=== PATIENT | female | born 1950 | race Caucasian/White ===

== ENCOUNTER 2017-07-26 05:40 | Observation (INO) ==
[2017-07-26] MEDS ORDERED: Ipratropium/Albuterol Neb 3 ML IH ONE (06:04)
[2017-07-26 06:10] LABS: Basophils % 0.1 %; Eosinophils # 0.1 K/mcL (0.0-0.6); Eosinophils % 0.9 %; Immature Granulocytes % 0.5 % (0-4); Lymphocytes # 2.9 K/mcL (0.6-4.6); Mean Corpuscular HGB Conc 31.4 g/dL (31.6-35.5); Mean Corpuscular Hemoglobin 26.1 pg (28.0-33.3); Mean Corpuscular Volume 83.1 fL (83.0-100.0); Mean Platelet Volume 10.6 fL (9.4-12.4); Monocytes # 0.6 K/mcL (0.0-1.3); Neutrophils # 6.3 K/mcL (1.6-8.9); Platelet Count 286 K/mcL (140-400); Red Blood Count 4.21 M/mcL (3.82-4.97); Red Cell Distribution Width 15.1 % (11.5-14.5); Segmented Neutrophils % 63.5 %
[2017-07-26 06:22] LABS: BUN/Creatinine Ratio 30 (6-26); Blood Urea Nitrogen 26 mg/dL (7-20); Calcium 8.7 mg/dL (8.6-10.8); Carbon Dioxide 22 mEq/L (19-29); Chloride 108 mEq/L (98-109); Glucose 137 mg/dL (70-99); Magnesium 0.9 mg/dL (1.6-2.6); Osmolality,Calculated 299 (280-300); Potassium 4.4 mEq/L (3.5-4.5); Sodium 141 mEq/L (136-145); eGFR For African Americans > 60 (> 60); eGFR For Non-African Americans > 60 (> 60)
[2017-07-26 06:29] LABS: Bilirubin,Urine Negative (Negative); Blood,Urine Negative (Negative); Clarity,Urine Clear (Clear); Color,Urine Yellow (Yellow); Glucose,Urine (UA) Normal (Normal); Ketones,Urine Negative (Negative); Leukocyte Esterase,Urine Negative (Negative); Nitrite,Urine Negative (Negative); Protein,Urine Negative (Neg-Trace); Specific Gravity,Urine 1.026 (1.010-1.025); Urobilinogen,Urine Normal (Normal)
--- NOTE | 2017-07-26 06:30 | Emergency Department Note ---
START Narrative - START START: Patient is a 67-year-old female nonsmoker who presents with difficulty breathing. Mentions a recent illness for which she has been seeing her primary care Dr. Nelson, who has put her on prednisone and Levaquin. She states that her difficulty breathing has been worsening for weeks, she has been unable to get an appointment with her tool machine set up operator. She mentions a history of A. fib, and states her compliance with her heart medications. She states she has been putting off coming to the emergency department, however her symptoms persisted which prompted her visit tonjose. She states she feels that her breathing worsened when she was outside. She has no relief with her breathing treatments at home. She denies any chest pain. She is slightly tachycardic, her initial EKG shows A. fib. She does have a history of A. fib. Her oxygen saturation is within normal limits. On examination, she does not appear in distress. She has bilateral wheezing. I have ordered initial lab work, chest x-ray, and a DuoNeb breathing treatment. This is a start note, care of this patient will be continued by day shift provider, Raissa Torres PA-C. Please see her documentation for details.
[2017-07-26 06:45] LABS: Thyroid Stimulating Hormone 1.052 mcIU/mL (0.350-4.840)
[2017-07-26] MEDS ORDERED: 0.9 % Sodium Chloride 1,000 ML IVC ONE (06:53)
--- NOTE | 2017-07-26 07:12 | Emergency Department Note ---
Disposition Clinical Impression: Hypomagnesemia, Atrial fibrillation with rapid ventricular response, Orthostatic hypotension, Near syncope Asthma with exacerbation Qualifiers: Asthma severity: unspecified severity Asthma persistence: persistent Qualified Code(s): J45.901 - Unspecified asthma with (acute) exacerbation Chest pain Qualifiers: Chest pain type: precordial pain Qualified Code(s): R07.2 - Precordial pain Disposition: Admitted As Inpatient Condition: Fair Referrals: Juaquin Nelson MD [Primary Care Provider] - SOB HPI - General Chief Complaint: ED Shortness of Breath/Dyspnea Stated Complaint: dizzy, ANAMARIA, heart racing Time Seen by Provider: 07/26/17 05:54 Source: patient, family Mode of arrival: private vehicle Limitations: no limitations Nursing Notes Reviewed: Yes Vital Signs Reviewed: Yes - History of Present Illness Patient presents from home with her for evaluation of dizziness, near syncope, shortness of breath and generalized malaise. She states that she has been feeling poorly for about a week. She saw her primary care provider, Juaquin Nelson, and was started on Levaquin and prednisone. She has taken this as prescribed and felt a little better on Sunday, but has gradually worsened since then. She has had several episodes of dizziness which she describes as "severely lightheaded and wobbly." She states that sometimes it feels like the room is spinning, but mostly she just feels like she is going to pass out. She has had episodes like this several times a month since having a triple bypass in June 2016. She has been through several medication changes and has seen her tape transferrer, Dr. Pitts. She continues to have these episodes. She states that sometimes they are related to an illness in that they are more frequent when she is feeling sick; but other times the episodes occur randomly. She denies chest pain, however, states that she has "heaviness in the lungs." This is how she describes the feeling she had when she came to the ER last June and ended up with a triple bypass. She has tried to get in with her tape transferrer, however, the soonest available appointment is the . She called the tape transferrer's office and was told to come to the ER. Pt Subjective Complaint: shortness of breath Onset (ago): day(s) Context: recent illness Severity: moderate Consistency/Duration: constant Improves with: rest Worsens with: exertion Known history of: asthma, diabetes, other (CAD) Associated symptoms: Reports: chest pain (Patient states, "heaviness in the lungs." She holds her chest with an open hand and states that it feels like there is pressure.), cough ("No worse than usual."), sense of impending doom. Denies: fever, wheezing, sputum production, orthopnea, lower extremity pain, polyuria, polydipsia, parasthesias, palpitations, hemoptysis, diaphoresis, nausea/vomiting, syncope (Patient describes several near syncopal episodes), abdominal pain, rash Treatment prior to arrival: bronchodilator, other (Levaquin and prednisone prescribed by her PCP last week) Cough present: Yes Cough Description: Voluntary, Involuntary, Non-Productive, Loose Cough Frequency: Intermittent Sputum production: No - Related Data Home oxygen amount: none Home Medications Medication Instructions Recorded Confirmed Albuterol Neb [Proventil Neb] 3 ml IH TID 06/26/16 05/15/17 Albuterol Sulfate [Ventolin Hfa] 2 puff IH Q4H PRN 06/26/16 05/15/17 Gabapentin [Neurontin] 1,200 mg PO TID 06/26/16 05/15/17 GlipiZIDE [Glipizide Xl] 10 mg PO BID 06/26/16 05/15/17 Latanoprost [Xalatan] 1 drop OP QPM 06/26/16 05/15/17 Linagliptin [Tradjenta] 5 mg PO DAILY 06/26/16 05/15/17 Lisinopril [Zestril] 10 mg PO DAILY 06/26/16 05/15/17 Loratadine [Claritin] 10 mg PO DAILY 06/26/16 05/15/17 Metformin HCl [Glucophage] 1,000 mg PO TID 06/26/16 05/15/17 Omeprazole [PriLOSEC] 20 mg PO BID 06/26/16 05/15/17 Oxycodone HCl/Acetaminophen 1 tab PO Q6H PRN 06/26/16 05/15/17 [Percocet 7.5-325 mg Tablet] Theophylline Anhydrous 400 mg PO BID 06/26/16 05/15/17 [Theophylline] Fluticasone Propionate Nasal 50 mcg NS DAILY PRN 05/15/17 05/15/17 [Flonase] Iron Polysaccharide Complex [Pro 180 mg PO DAILY 05/15/17 05/15/17 Fe] Ondansetron HCl [Zofran] 4 mg PO Q6H PRN 05/15/17 05/15/17 Rivaroxaban [Xarelto] 20 mg PO DAILY 05/15/17 05/15/17 Metoprolol [Lopressor] 25 mg PO BID 07/26/17 07/26/17 Pantoprazole Sodium [Protonix] 40 mg PO DAILY 07/26/17 07/26/17 levoFLOXacin [Levaquin] 500 mg PO DAILY 07/26/17 07/26/17 predniSONE [PredniSONE] 10 mg PO 07/26/17 Previous Rx's Medication Instructions Recorded Aspirin Enteric Coated [Aspirin EC] 81 mg PO DAILY #60 tablet. 07/06/16 Atorvastatin [Lipitor] 40 mg PO HS #30 tablet 07/06/16 Allergies Allergy/AdvReac Type Severity Reaction Status Date / Time methylprednisolone AdvReac Diarrhea Verified 03/12/17 17:29 Penicillins AdvReac Swelling Verified 03/12/17 17:29 of Lip/Tongue/Throat rofecoxib AdvReac Nausea Verified 03/12/17 17:29 All systems ED: reviewed and negative except as stated. Review of Systems: As Per HPI Constitutional: Denies: fever, chills, weakness, weight change, night sweats Eyes: Denies: eye pain, eye discharge, vision change ENT ED: Denies: ear pain, throat pain, epistaxis, congestion, dysphagia Cardiovascular: Reports: as per HPI, chest pain, palpitations (Patient states, "sometimes it feels like my heart is racing, but I have (paroxysmal) atrial fibrillation"), dyspnea on exertion, syncope (Near syncope). Denies: orthopnea , edema, paroxysmal nocturnal dyspnea Respiratory: Reports: as per HPI, cough, dyspnea. Denies: wheezes, hemoptysis, stridor, sputum production Gastrointestinal: Denies: abdominal pain, nausea, vomiting, diarrhea, constipation Genitourinary: Denies: urgency, dysuria, frequency, hematuria Musculoskeletal: Denies: back pain, neck pain, joint swelling, arthralgia Integumentary: Denies: rash Neurological: Reports: as per HPI, vertigo (Patient describes "sometimes it feels like the room is spinning, but mostly I am just very lightheaded and wobbly."). Denies: headache, weakness, numbness, paresthesias, confusion, abnormal gait Endocrine: Reports: fatigue. Denies: heat or cold intolerance, polydipsia, polyuria Hematological/Lymphatic: Reports: easy bleeding (Patient takes Xarelto). Denies : lymphadenopathy Allergic/Immunologic: Denies: facial swelling, urticaria, itchy eyes Past Medical History - Past Medical History Attestation: Yes The following information was validated with the patient. Source: patient Medical history: Reports: asthma, coronary artery disease, diabetes, glaucoma, hypertension, other Surgical history: Reports: appendectomy, cataract, hysterectomy Psychiatric history: Reports: no psych history - Social History Smoking Status: Never smoker Smokeless Tobacco Status: No Alcohol use: Reports: none Drug use: Reports: none Physical Exam - General Limitations: no limitations General appearance: alert, in no apparent distress - Head Head exam: atraumatic, normocephalic, normal inspection - Eye Eye exam: Present: normal appearance, PERRL. Absent: scleral icterus, conjunctival injection, periorbital swelling - ENT ENT exam: normal oropharynx, mucous membranes moist - Neck Neck exam: Present: normal inspection, full ROM, trachea midline. Absent: meningismus, lymphadenopathy - Chest Chest inspection: Present: normal inspection, symmetric chest wall rise. Absent : tenderness - Respiratory Respiratory exam: Present: normal lung sounds bilaterally. Absent: respiratory distress, wheezes, stridor, accessory muscle use, prolonged expiratory phase - Cardiovascular Cardiovascular exam: Present: tachycardia, irregular rhythm, normal heart sounds - Abdominal Exam Abdominal exam: Present: soft, Non-Tender. Absent: distention, guarding, rebound, mass - Extremities Exam Extremities exam: Present: normal inspection, full ROM, normal capillary refill. Absent: tenderness, pedal edema, joint swelling, calf tenderness - Back Exam Back exam: Present: normal inspection - Neurological Exam Neurological exam: Present: alert, oriented X3, CN II-XII intact - Psychiatric Psychiatric exam: Present: normal affect, normal mood - Skin Skin exam: Present: warm, dry, intact, normal color Course Course Narrative: Patient presents for evaluation of "dizziness", near syncope, shortness of breath and "heart racing." She has a history of paroxysmal atrial fibrillation , hypertension, asthma. She has never smoked. She had a CABG last June and has had intermittent episodes of dizziness and near syncope since that procedure. She was anemic for several months after the procedure. However, this has improved. She has had a recent upper respiratory infection for which she was seen by her primary care provider. She has taken Levaquin and prednisone as prescribed but has not had significant improvement and has had more frequent episodes of dizziness and near syncope. She describes a heaviness in her chest which has been intermittent for a few days. She is afebrile, tachycardic - currently at 103 - with an irregular rhythm. Blood pressure is 110/70 while she is semi-reclined. She is currently taking a DuoNeb treatment. Lung sounds are clear at this time, and oxygen saturation is 100%. She has no leg pain or swelling, a negative Homans sign bilaterally and does not complain of pain with deep inspiration. She has had no hemoptysis and is on Xarelto. She denies missing any doses of this medication, so I feel that PE is less likely to be the cause of her symptoms. She has had generalized malaise and increased dyspnea at rest. This makes an infectious etiology a strong possibility. She has a history of coronary artery disease but had a triple bypass 13 months ago. She does have an exertional worsening of her dyspnea and describes a chest heaviness, so ACS is in the differential. She takes multiple medications including two blood pressure meds - carvedilol and lisinopril - however, these were both decreased by her primary care provider last week and she continues to have near syncopal episodes. Labs, orthostatic vitals, EKG and x-ray have been ordered by the previous provider. Patient declines any needs at this time. Case has been discussed with Dr. Curiel. He has had [id number] time with the patient and agrees with the assessment and plan. Patient has a magnesium of 0.9. She does take supplemental magnesium, one tablet daily. We will give IV Mag. Troponin is normal. EKG shows atrial fibrillation with RVR. The rate at the time of EKG was 123. It also shows left axis deviation and Q waves inferiorly. EKG is essentially unchanged compared to one from April of this year. Chest x-ray was read by the radiologist as no acute abnormality. Her anemia is significantly improved and H &H are almost normal. The remainder of the CBC is normal. BUN is mildly elevated at 26. Creatinine is normal. Orthostatic vitals are very concerning. She is significantly orthostatic. Fluids and magnesium have been ordered. Hospitalist contacted for admission. A consult with cardiology will be ordered as well. Delay in marking patient for Admission due to timing (shift change) and high number of concurrent admits. Patient resting comfortably. No complaints as long as she is reclined. Vital Signs Temperature 97.5 F L 07/26/17 05:42 Pulse Rate 107 07/26/17 05:42 Respiratory Rate 20 07/26/17 05:42 Blood Pressure 117/75 07/26/17 05:42 O2 Sat by Pulse Oximetry 99 07/26/17 05:42 Temperature 97.5 F L 07/26/17 05:42 Pulse Rate 103 07/26/17 06:55 Respiratory Rate 18 07/26/17 06:13 Blood Pressure 112/76 07/26/17 06:55 O2 Sat by Pulse Oximetry 98 07/26/17 06:13 Oxygen Delivery Oxygen Delivery Room Air Shortness of Breath/Dyspnea - Medical Records Medical records reviewed: Yes I reviewed the patient's medical records. - Lab Data Lab results reviewed: Yes I reviewed the patient's lab results. Lab results narrative: Laboratory Last Values WBC 9.9 K/mcL (4.3-11.1) 07/26/17 05:59 RBC 4.21 M/mcL (3.82-4.97) 07/26/17 05:59 Hgb 11.0 g/dL (11.5-15.4) L 07/26/17 05:59 Hct 35.0 % (35.3-44.9) L 07/26/17 05:59 MCV 83.1 fL (83.0-100.0) 07/26/17 05:59 MCH 26.1 pg (28.0-33.3) L 07/26/17 05:59 MCHC 31.4 g/dL (31.6-35.5) L 07/26/17 05:59 RDW 15.1 % (11.5-14.5) H 07/26/17 05:59 Plt Count 286 K/mcL (140-400) 07/26/17 05:59 MPV 10.6 fL (9.4-12.4) 07/26/17 05:59 Immature Gran % 0.5 % (0-4) 07/26/17 05:59 Seg Neutrophils % 63.5 % 07/26/17 05:59 Lymphocytes % 29.0 % 07/26/17 05:59 Monocytes % 6.0 % 07/26/17 05:59 Eosinophils % 0.9 % 07/26/17 05:59 Basophils % 0.1 % 07/26/17 05:59 Neutrophils # 6.3 K/mcL (1.6-8.9) 07/26/17 05:59 Lymphocytes # 2.9 K/mcL (0.6-4.6) 07/26/17 05:59 Monocytes # 0.6 K/mcL (0.0-1.3) 07/26/17 05:59 Eosinophils # 0.1 K/mcL (0.0-0.6) 07/26/17 05:59 Basophils # 0.0 K/mcL (0.0-0.2) 07/26/17 05:59 Sodium 141 mEq/L (136-145) 07/26/17 05:59 Potassium 4.4 mEq/L (3.5-4.5) 07/26/17 05:59 Chloride 108 mEq/L (98-109) 07/26/17 05:59 Carbon Dioxide 22 mEq/L (19-29) 07/26/17 05:59 BUN 26 mg/dL (7-20) H 07/26/17 05:59 Creatinine 0.88 mg/dL (0.57-1.11) 07/26/17 05:59 Est GFR ( Amer) > 60 (> 60) 07/26/17 05:59 Est GFR (Non-Af Amer) > 60 (> 60) 07/26/17 05:59 BUN/Creatinine Ratio 30 (6-26) H 07/26/17 05:59 Glucose 137 mg/dL (70-99) H 07/26/17 05:59 Calculated Osmolality 299 (280-300) 07/26/17 05:59 Calcium 8.7 mg/dL (8.6-10.8) 07/26/17 05:59 Magnesium 0.9 mg/dL (1.6-2.6) L 07/26/17 05:59 Troponin I 0.01 ng/mL (0-0.03) 07/26/17 05:59 TSH 1.052 mcIU/mL (0.350-4.840) 07/26/17 05:59 Urine Color Yellow (Yellow) 07/26/17 06:12 Urine Clarity Clear (Clear) 07/26/17 06:12 Urine pH 6.0 pH Units (5.0-8.0) 07/26/17 06:12 Ur Specific [place] 1.026 (1.010-1.025) H 07/26/17 06:12 Urine Protein Negative mg/dL (Neg-Trace) 07/26/17 06:12 Urine Glucose (UA) Normal mg/dL (Normal) 07/26/17 06:12 Urine Ketones Negative mg/dL (Negative) 07/26/17 06:12 Urine Blood Negative (Negative) 07/26/17 06:12 Urine Nitrite Negative (Negative) 07/26/17 06:12 Urine Bilirubin Negative (Negative) 07/26/17 06:12 Urine Urobilinogen Normal mg/dL (Normal) 07/26/17 06:12 Ur Leukocyte Esterase Negative (Negative) 07/26/17 06:12 Ur Culture Indicated? NO (NO) 07/26/17 06:12 Result diagrams: 07/26/17 05:59 07/26/17 05:59 Lab Results 07/26/17 07/26/17 07/26/17 Range/Units 05:59 05:59 05:59 WBC 9.9 (4.3-11.1) K/mcL RBC 4.21 (3.82-4.97) M/mcL Hgb 11.0 L (11.5-15.4) g/dL Hct 35.0 L (35.3-44.9) % MCV 83.1 (83.0-100.0) fL MCH 26.1 L (28.0-33.3) pg MCHC 31.4 L (31.6-35.5) g/dL RDW 15.1 H (11.5-14.5) % Plt Count 286 (140-400) K/mcL MPV 10.6 (9.4-12.4) fL Immature Gran % 0.5 (0-4) % Seg Neutrophils % 63.5 % Lymphocytes % 29.0 % Monocytes % 6.0 % Eosinophils % 0.9 % Basophils % 0.1 % Neutrophils # 6.3 (1.6-8.9) K/mcL Lymphocytes # 2.9 (0.6-4.6) K/mcL Monocytes # 0.6 (0.0-1.3) K/mcL Eosinophils # 0.1 (0.0-0.6) K/mcL Basophils # 0.0 (0.0-0.2) K/mcL Sodium 141 (136-145) mEq/L Potassium 4.4 (3.5-4.5) mEq/L Chloride 108 (98-109) mEq/L Carbon Dioxide 22 (19-29) mEq/L BUN 26 H (7-20) mg/dL Creatinine 0.88 (0.57-1.11) mg/dL Est GFR ( Amer) > 60 (> 60) Est GFR (Non-Af Amer) > 60 (> 60) BUN/Creatinine Ratio 30 H (6-26) Glucose 137 H (70-99) mg/dL Calculated Osmolality 299 (280-300) Calcium 8.7 (8.6-10.8) mg/dL Magnesium 0.9 L (1.6-2.6) mg/dL Troponin I 0.01 (0-0.03) ng/mL TSH 1.052 (0.350-4.840) mcIU/mL Urine Color (Yellow) Urine Clarity (Clear) Urine pH (5.0-8.0) pH Units Ur Specific [place] (1.010-1.025) Urine Protein (Neg-Trace) mg/dL Urine Glucose (UA) (Normal) mg/dL Urine Ketones (Negative) mg/dL Urine Blood (Negative) Urine Nitrite (Negative) Urine Bilirubin (Negative) Urine Urobilinogen (Normal) mg/dL Ur Leukocyte Esterase (Negative) Ur Culture Indicated? (NO) 07/26/17 Range/Units 06:12 WBC (4.3-11.1) K/mcL RBC (3.82-4.97) M/mcL Hgb (11.5-15.4) g/dL Hct (35.3-44.9) % MCV (83.0-100.0) fL MCH (28.0-33.3) pg MCHC (31.6-35.5) g/dL RDW (11.5-14.5) % Plt Count (140-400) K/mcL MPV (9.4-12.4) fL Immature Gran % (0-4) % Seg Neutrophils % % Lymphocytes % % Monocytes % % Eosinophils % % Basophils % % Neutrophils # (1.6-8.9) K/mcL Lymphocytes # (0.6-4.6) K/mcL Monocytes # (0.0-1.3) K/mcL Eosinophils # (0.0-0.6) K/mcL Basophils # (0.0-0.2) K/mcL Sodium (136-145) mEq/L Potassium (3.5-4.5) mEq/L Chloride (98-109) mEq/L Carbon Dioxide (19-29) mEq/L BUN (7-20) mg/dL Creatinine (0.57-1.11) mg/dL Est GFR ( Amer) (> 60) Est GFR (Non-Af Amer) (> 60) BUN/Creatinine Ratio (6-26) Glucose (70-99) mg/dL Calculated Osmolality (280-300) Calcium (8.6-10.8) mg/dL Magnesium (1.6-2.6) mg/dL Troponin I (0-0.03) ng/mL TSH (0.350-4.840) mcIU/mL Urine Color Yellow (Yellow) Urine Clarity Clear (Clear) Urine pH 6.0 (5.0-8.0) pH Units Ur Specific [place] 1.026 H (1.010-1.025) Urine Protein Negative (Neg-Trace) mg/dL Urine Glucose (UA) Normal (Normal) mg/dL Urine Ketones Negative (Negative) mg/dL Urine Blood Negative (Negative) Urine Nitrite Negative (Negative) Urine Bilirubin Negative (Negative) Urine Urobilinogen Normal (Normal) mg/dL Ur Leukocyte Esterase Negative (Negative) Ur Culture Indicated? NO (NO) - Radiology Data Radiology results reviewed: Yes I reviewed the patient's radiology results. Chest X-Ray 07/26/17 05:55 IMPRESSION: No acute abnormality. D/ / Mauricio Estrada MD / Mauricio Estrada MD Interpreting Provider: Mauricio Estrada MD - EKG Data EKG attestation: Yes I reviewed and interpreted this EKG. Rhythm: Reports: A.Fib Agency/QRS: Reports: left axis deviation Voltage: Reports: decreased voltage throughout Q waves: Reports: III, aVF When compared to previous EKG there are: no significant changes Interpretation: Reports: unchanged when compared to prior tracing (date)
--- NOTE | 2017-07-26 07:12 | Emergency Department Note ---
Attestation Statement - Attestation Attestation: I, Johnny Curiel MD, personally evaluated this patient and discussed their management with the midlevel provicer, PAC/AREA SAFETY MANAGER. I reviewed the midlevel provider 's note and agree with the documented findings, medical decision making, and plan of care. 67-year-old female presents to the emergency department complaining of shortness of breath since last week. She states she saw her doctor 3 times last week has been short of breath ever since then. She also complains of her heart racing. She has a history of atrial fibrillation and is on Xarelto. Patient is unsure if she is in atrial fibrillation all the time or just intermittently. On arrival patient is in atrial fibrillation with RVR. Heart rate around 120 on arrival but at time of my exam is about 105. She denies any chest pain. On examination the patient is a well-developed well-nourished female in no acute distress. She is alert and oriented 3. There is no cyanosis or diaphoresis. Breath sounds are decreased but equal bilaterally with a few faint late expiratory wheezes. Heart is irregularly irregular with a mild tachycardia. Abdomen soft with normal bowel sounds. EKG showed atrial fibrillation with RVR. Plan is to consult the hospitalist for admission after workup.
[2017-07-26] MEDS ORDERED: Aspirin 81 MG TAB.CHEW PO STA (08:27)
[2017-07-26] MEDS ORDERED: Naloxone 0.4 MG/ML INJ IVP PRN (18:05)
[2017-07-26] MEDS ORDERED: MOM Conc 10 ML UD.LIQ PO PRN (18:05)
[2017-07-26] MEDS ORDERED: Acetaminophen 325 MG TABLET PO PRN (18:05)
[2017-07-26] MEDS ORDERED: Ondansetron ODT 4 MG TAB.RAPDIS PO PRN (18:08)
[2017-07-26] MEDS ORDERED: *HR* OxyCODONE/APAP 7.5/325 TABLET PO PRN (18:08)
--- NOTE | 2017-07-26 18:18 | Internal Med History&Physical ---
Date of Encounter: 07/26/17 Time of Encounter: 18:16 Assessment and Plan (1) Near syncope Current visit: Yes Status: Acute I do not think the reason for syncope is neurological. Patient's magnesium is 0.9. Likely reason for the syncopal episode is related to right abnormality causing muscle weakness and that is the main problem here. Plan August is replaced I examined this patient off for 12 hours and patient feels much better as compared to the morning. (2) Diabetes mellitus Current visit: No Status: Chronic SCSI Monitor sugar very closely Qualifiers: Diabetes mellitus type: type 2 Diabetes mellitus complication status: with unspecified complications Diabetes mellitus terminologist insulin use: without chcf use Qualified Code(s): E11.8 - Type 2 diabetes mellitus with unspecified complications (3) Atrial fibrillation with rapid ventricular response Current visit: Yes Status: Acute Not in rapid ventricular rate. Anticoagulation was Xarelto. (4) Orthostatic hypotension Current visit: Yes Status: Acute Likely secondary to electrolyte disturbance. (5) DVT prophylaxis Current visit: No Status: Acute Xarelto Medical decision making: This patient has a moderate to severe risk of worsening in spite of being on appropriate medication due to the underlying multiple complex comorbid conditions. Internal Medicine - H&P: HPI Chief complaint: Dizziness Admitted From: Emergency Dept Plans for Post Hospital Care: Home History of present illness: 67-year-old female has a multiple medical problems as listed in the list provided the emergency physician. She came to the emergency room as she was feeling extremely dizzy and she was having headache along with presyncopal episodes. Patient has one was really concerned on the issue what was going on that was reason he brought her to the emergency room for further evaluation. Patient was seen in the emergency room at a fast track by a nurse practitioner and patient received IV fluid along with 4 g of magnesium as it was noted that patient's magnesium was only 0.9. Surprisingly patient's potassium is within normal limits. Patient does not complain of chest pain, shortness of breath, nausea, vomiting, abdominal pain, distention or diarrhea. Reason for admission: Syncopal episode along with the multiple electrolyte abnormalities for intravenous correction of the same and close monitoring on telemetry. Past Med Surg Social Fam HX - Past Medical History Medical history: asthma, coronary artery disease, diabetes, glaucoma, hypertension, other Psychiatric history: no psych history - Past Surgical History Surgical History: appendectomy, cataract, hysterectomy - Social History Smoking Status: Never smoker Smokeless Tobacco Status: No Alcohol use: none Drug use: none - Family History Mother Living Status: Hx Family Cancer: Yes Son Living Status: Still Living Hx Family Endocrine Disorder: Yes (Diabetes) Father Living Status: Hx Family Cancer: Yes Hx Family Endocrine Disorder: Yes (Diabetes) Internal Medicine - H&P: Meds Albuterol Neb [Proventil Neb] 3 ml IH TID 06/26/16 [History] Albuterol Sulfate [Ventolin Hfa] 2 puff IH Q4H PRN 06/26/16 [History] Gabapentin [Neurontin] 1,200 mg PO TID 06/26/16 [History] GlipiZIDE [Glipizide Xl] 10 mg PO BID 06/26/16 [History] Latanoprost [Xalatan] 1 drop OP QPM 06/26/16 [History] Linagliptin [Tradjenta] 5 mg PO DAILY 06/26/16 [History] Lisinopril [Zestril] 10 mg PO DAILY 06/26/16 [History] Loratadine [Claritin] 10 mg PO DAILY 06/26/16 [History] Metformin HCl [Glucophage] 1,000 mg PO TID 06/26/16 [History] Omeprazole [PriLOSEC] 20 mg PO BID 06/26/16 [History] Oxycodone HCl/Acetaminophen [Percocet 7.5-325 mg Tablet] 1 tab PO Q6H PRN [History] Theophylline Anhydrous [Theophylline] 400 mg PO BID 06/26/16 [History] Aspirin Enteric Coated [Aspirin EC] 81 mg PO DAILY #60 tablet.dr 07/06/16 [Rx] Atorvastatin [Lipitor] 40 mg PO HS #30 tablet 07/06/16 [Rx] Fluticasone Propionate Nasal [Flonase] 50 mcg NS DAILY PRN 05/15/17 [History] Iron Polysaccharide Complex [Pro Fe] 180 mg PO DAILY 05/15/17 [History] Ondansetron HCl [Zofran] 4 mg PO Q6H PRN 05/15/17 [History] Rivaroxaban [Xarelto] 20 mg PO DAILY 05/15/17 [History] Metoprolol [Lopressor] 25 mg PO BID 07/26/17 [History] Pantoprazole Sodium [Protonix] 40 mg PO DAILY 07/26/17 [History] levoFLOXacin [Levaquin] 500 mg PO DAILY 07/26/17 [History] predniSONE [PredniSONE] 15 mg PO DAILY 07/26/17 [History] 3 Allergy/AdvReac Type Severity Reaction Status Date / Time methylprednisolone AdvReac Diarrhea Verified 03/12/17 17:29 Penicillins AdvReac Swelling Verified 07/26/17 09:44 of Lip/Tongue/Throat rofecoxib AdvReac Nausea Verified 03/12/17 17:29 All Systems PM: A 10-system review of systems was performed and is negative for pertinent findings except as documented above in the HPI. - Constitutional Constitutional: no chills, no fever(s), no night sweats - EENT Eyes: no change in vision, no discharge, no pain, no photophobia Ears: no ear discharge, no ear pain, no tinnitus Nose, mouth and throat: no dysphagia, no nasal discharge, no neck pain, no sore throat - Cardiovascular Cardiovascular ROS IM: lightheadedness, palpitations, no chest pain, no diaphoresis, no dyspnea, no syncope - Respiratory Respiratory: no cough, no dyspnea, no wheezing, no excessive phlegm production - Gastrointestinal Gastrointestinal: no abdominal pain, no diarrhea, no hematemesis, no hematochezia, no melena, no nausea, no vomiting - Genitourinary Genitourinary: no change in urinary stream, no dysuria, no flank pain, no hematuria - Musculoskeletal Musculoskeletal ROS IM: no numbness, no tingling - Integumentary Integumentary IM: no rash, no unusual bruising - Neurological Neurological ROS: no confusion, no convulsions, no focal weakness, no numbness, no tingling, no tremor(s) - Hematologic/Lymphatic Hematologic/Lymphatic: no easy bruising - Constitutional Vitals: Temp Pulse Resp BP Pulse Ox 98.3 F 94 16 100/69 98 07/26/17 14:27 07/26/17 14:27 07/26/17 14:27 07/26/17 14:27 07/26/17 14:27 General appearance: Present: A&O X 3, pleasant, no acute distress, answers questions appropriately - Head Head exam: Present: atraumatic, normocephalic - Eye Eye exam: Present: PERRL, conjuntiva pink, sclera anicteric Pupils: Present: PERRL - Neck Neck exam general surgery: Present: supple, trachea midline. Absent: lymphadenopathy - Respiratory Respiratory exam: Present: CTAB. Absent: accessory muscle use, rales, rhonchi, wheezes - Cardiovascular Cardiovascular exam: Present: RRR, +S1, +S2. Absent: diastolic murmur, gallop, rubs, systolic murmur - GI/Abdominal GI/Abdominal exam: Present: normal bowel sounds, soft, no peritoneal signs. Absent: distended, tenderness - Extremities Exam Extremities exam: Present: warm, radial pulses palpable and symmetrical. Absent : calf tenderness, cyanotic, pedal edema - Neurological Exam Neurological exam: Present: CN II-XII intact, oriented X3, no focal deficits. Absent: pronater drift, facial droop, speech deficit - Skin Skin exam: Present: dry, intact Internal Med - H&P Results - Labs CBC & Chem 7: 07/26/17 05:59 07/26/17 05:59
[2017-07-26] MEDS ORDERED: *HR* Dextrose 50 % in Water (Syg) 50 ML SYRINGE IVP PRN (18:31)
[2017-07-26] MEDS ORDERED: D5% in Water 1,000 ML IVC PRN (18:31)
[2017-07-26] MEDS ORDERED: Dextrose Gel 15 GM PO PRN ×2 (18:31)
[2017-07-26] MEDS: Albuterol 2.5 MG/3 ML NEBULIZER IH SCH (20:09)
[2017-07-26] MEDS: Gabapentin 400 MG CAPSULE PO SCH (21:25)
[2017-07-26] MEDS: *HR* GlipiZIDE XL (24 HR) 10 MG TABLET PO SCH (21:26)
[2017-07-27 00:42] LABS: Basophils % 0.2 %; Eosinophils # 0.2 K/mcL (0.0-0.6); Eosinophils % 2.5 %; Hematocrit 32.6 % (35.3-44.9); Hemoglobin 10.2 g/dL (11.5-15.4); Immature Granulocytes % 0.5 % (0-4); Lymphocytes # 2.4 K/mcL (0.6-4.6); Lymphocytes % 26.9 %; Mean Corpuscular HGB Conc 31.3 g/dL (31.6-35.5); Mean Corpuscular Hemoglobin 25.9 pg (28.0-33.3); Mean Corpuscular Volume 82.7 fL (83.0-100.0); Mean Platelet Volume 10.2 fL (9.4-12.4); Monocytes # 0.6 K/mcL (0.0-1.3); Monocytes % 6.5 %; Neutrophils # 5.6 K/mcL (1.6-8.9); Platelet Count 239 K/mcL (140-400); Red Blood Count 3.94 M/mcL (3.82-4.97); Red Cell Distribution Width 15.3 % (11.5-14.5); Segmented Neutrophils % 63.4 %
[2017-07-27 00:58] LABS: Alanine Aminotransferase 7 Units/L (0-55); Albumin 2.9 g/dL (3.5-5.0); Albumin/Globulin Ratio 1.1 (1.1-2.2); Alkaline Phosphatase 55 Units/L (38-126); Aspartate Amino Transferase 9 Units/L (5-34); BUN/Creatinine Ratio 24 (6-26); Bilirubin,Total 0.5 mg/dL (0.2-1.2); Blood Urea Nitrogen 20 mg/dL (7-20); Calcium 8.8 mg/dL (8.6-10.8); Carbon Dioxide 25 mEq/L (19-29); Chloride 107 mEq/L (98-109); Chol/HDL Ratio 2.7 (0-4.9); Cholesterol 131 mg/dL (< 200); Globulin 2.6 g/dL (2.4-3.5); Glucose 132 mg/dL (70-99); HDL Cholesterol 48 mg/dL (40-59); INR 1.2; LDL Cholesterol,Calculated 59 mg/dL (0-99); Magnesium 1.8 mg/dL (1.6-2.6); Osmolality,Calculated 292 (280-300); Phosphorous 3.6 mg/dL (2.3-4.7); Potassium 4.5 mEq/L (3.5-4.5); Prothrombin Time 13.1 Seconds (9.4-12.1); Sodium 139 mEq/L (136-145); Total Protein 5.5 g/dL (6.0-8.3); Triglycerides 120 mg/dL (< 150); eGFR For African Americans > 60 (> 60); eGFR For Non-African Americans > 60 (> 60)
[2017-07-27 01:02] LABS: Activated Partial Thrombo Time 26.9 Seconds (26.0-36.0)
[2017-07-27] MEDS: Iron Polysaccharide Complex 150 MG CAPSULE PO SCH (08:16)
[2017-07-27] MEDS: *HR* GlipiZIDE XL (24 HR) 10 MG TABLET PO SCH ×2 (08:16→16:42)
[2017-07-27] MEDS: Insulin LISPRO 300 UNITS/3 ML VIAL SQ SCH ×5 (08:16→21:21)
[2017-07-27] MEDS: Gabapentin 400 MG CAPSULE PO SCH ×3 (08:16→21:20)
[2017-07-27] MEDS: Aspirin Enteric Coated 81 MG Tablet PO SCH (08:17)
[2017-07-27] MEDS ORDERED: *HR* OxyCODONE/APAP 7.5/325 TABLET PO PRN (08:20)
--- NOTE | 2017-07-27 08:41 | Internal Med Progress Note ---
Date of Encounter: 07/27/17 Time of Encounter: 08:39 - Assessment and plan (1) Near syncope Current Visit: Yes Status: Acute (2) Atrial fibrillation with rapid ventricular response Current Visit: Yes Status: Acute (3) Coronary artery disease Current Visit: Yes Status: Acute Qualifiers: Coronary Disease-Associated Artery/Lesion type: [place] artery [place] vs. transplanted heart: [place] heart Associated angina: without angina Qualified Code(s): I25.10 - Atherosclerotic heart disease of [place] coronary artery without angina pectoris (4) Diabetes mellitus Current Visit: Yes Status: Chronic Qualifiers: Diabetes mellitus type: type 2 Diabetes mellitus complication status: with unspecified complications Diabetes mellitus senior living insulin use: without long term care phlebotomist use Qualified Code(s): E11.8 - Type 2 diabetes mellitus with unspecified complications - Subjective Interval history: Admitted for an near syncope with documented orthostatic hypotension in ER indicating underlying hypovolemia due to etiology is not clear at this time severe hypomagnesemia raising the question of laxatives versus diarrhea versus diuretics. Patient has diabetes and severe triple vessel disease. Previous echo and cardiac catheter showed EF of 40-45%. Patient is also on Xarelto for atrial fibrillation. Patient has been given fluid and low magnesium has been corrected. Repeat orthostatics obtain PT evaluation and repeat echocardiogram to make sure that he is not a fall risk considering the fact that he is on anticoagulation. Patient is diabetic Accu-Chek 4 times a day with sliding scale coverage and continue home medication. - Constitutional Vitals: Temp Pulse Resp BP Pulse Ox 98.4 F 96 15 112/78 98 07/27/17 06:42 07/27/17 06:42 07/27/17 06:42 07/27/17 06:42 07/27/17 06:42 General appearance: Present: A&O X 3, pleasant, no acute distress, answers questions appropriately - Head Head exam: Present: atraumatic, normocephalic - Eye Eye exam: Present: PERRL, conjuntiva pink, sclera anicteric Pupils: Present: PERRL - Neck Neck exam general surgery: Present: supple, trachea midline. Absent: lymphadenopathy - Respiratory Respiratory exam: Present: CTAB. Absent: accessory muscle use, rales, rhonchi, wheezes - Cardiovascular Cardiovascular exam: Present: RRR, +S1, +S2. Absent: diastolic murmur, gallop, rubs, systolic murmur - GI/Abdominal GI/Abdominal exam: Present: normal bowel sounds, soft, no peritoneal signs. Absent: distended, tenderness - Extremities Exam Extremities exam: Present: warm, radial pulses palpable and symmetrical. Absent : calf tenderness, cyanotic, pedal edema - Neurological Exam Neurological exam: Present: CN II-XII intact, oriented X3, no focal deficits. Absent: pronater drift, facial droop, speech deficit - Skin Skin exam: Present: dry, intact Internal Medicine: Result - Labs CBC & Chem 7: 07/27/17 00:29 07/27/17 00:29 Labs: Short CBC 07/27/17 Range/Units 00:29 WBC 8.9 (4.3-11.1) K/mcL Hgb 10.2 L (11.5-15.4) g/dL Hct 32.6 L (35.3-44.9) % Plt Count 239 (140-400) K/mcL Neutrophils # 5.6 (1.6-8.9) K/mcL BMP 07/27/17 00:29 Sodium 139 Potassium 4.5 Chloride 107 Carbon Dioxide 25 BUN 20 Creatinine 0.82 Glucose 132 H Calcium 8.8 Cardiac Enzymes 07/26/17 07/27/17 07/27/17 Range/Units 18:25 00:29 05:56 Troponin I 0.01 0.00 0.01 (0-0.03) ng/mL Liver Function 07/27/17 Range/Units 00:29 Total Bilirubin 0.5 (0.2-1.2) mg/dL AST 9 (5-34) Units/L ALT 7 (0-55) Units/L Alkaline Phosphatase 55 (38-126) Units/L Albumin 2.9 L (3.5-5.0) g/dL - ABG Interpretation ABG results: PT/INR, D-dimer PT 13.1 Seconds (9.4-12.1) H 07/27/17 00:29 Consult Discharge Plan - Plan Referrals: Juaquin Nelson MD [Primary Care Provider] -
[2017-07-27] MEDS ORDERED: predniSONE 10 MG TABLET PO SCH (09:00)
[2017-07-27] MEDS: Albuterol 2.5 MG/3 ML NEBULIZER IH SCH (10:42)
[2017-07-27] MEDS ORDERED: Albuterol 2.5 MG/3 ML NEBULIZER IH PRN (10:53)
[2017-07-27] MEDS ORDERED: Doxycycline 100 MG CAPSULE PO SCH (11:00)
[2017-07-27] MEDS: Doxycycline 100 MG CAPSULE PO SCH ×2 (12:00→23:18)
[2017-07-27] MEDS: methylPREDNISolone 125 MG/2 ML VIAL IVP SCH ×2 (15:31→23:18)
--- NOTE | 2017-07-27 16:27 | Electrocardiograph Report ---
[place] [id number] Test Date: 2017-07-26 Pat Name: Deyanira [place] Department: 104 Room: 2A Gender: F Hotel Maintenance Engineer: TONY : 1950 Requested By: Jackeline Perez Order Number: [id number] Reading MD: Gildardo Malik MD Measurements Intervals [place] Rate: 123 P: ID: 0 QRS: -43 QRSD: 80 T: 31 QT: 288 QTc: 361 Interpretive Statements ATRIAL FIBRILLATION WITH RAPID VENTRICULAR RESPONSE MARKED LEFT AXIS DEVIATION LOW QRS VOLTAGE Electronically Signed On 07-27-2017 16:25:56 EST by Gildardo Malik MD
[2017-07-27] MEDS: *HR* Rivaroxaban 10 MG TABLET PO SCH (16:42)
[2017-07-27] MEDS: Ipratropium/Albuterol Neb 3 ML IH SCH ×2 (17:15→21:35)
[2017-07-27] MEDS ORDERED: Latanoprost 2.5 ML BOTTLE BOTH EYES SCH (18:00)
[2017-07-27] MEDS: Latanoprost 2.5 ML BOTTLE BOTH EYES SCH (21:22)
[2017-07-28] MEDS: Ipratropium/Albuterol Neb 3 ML IH SCH ×4 (03:19→22:52)
[2017-07-28 05:09] LABS: Hematocrit 36.3 % (35.3-44.9); Hemoglobin 11.2 g/dL (11.5-15.4); Immature Granulocytes % 0.4 % (0-4); Lymphocytes # 0.5 K/mcL (0.6-4.6); Lymphocytes % 5.6 %; Mean Corpuscular HGB Conc 30.9 g/dL (31.6-35.5); Mean Corpuscular Hemoglobin 25.7 pg (28.0-33.3); Mean Corpuscular Volume 83.3 fL (83.0-100.0); Mean Platelet Volume 10.6 fL (9.4-12.4); Monocytes # 0.1 K/mcL (0.0-1.3); Monocytes % 0.5 %; Neutrophils # 8.9 K/mcL (1.6-8.9); Platelet Count 283 K/mcL (140-400); Red Blood Count 4.36 M/mcL (3.82-4.97); Segmented Neutrophils % 93.5 %
[2017-07-28 05:20] LABS: Alanine Aminotransferase 9 Units/L (0-55); Albumin 3.1 g/dL (3.5-5.0); Alkaline Phosphatase 64 Units/L (38-126); Aspartate Amino Transferase 6 Units/L (5-34); BUN/Creatinine Ratio 26 (6-26); Bilirubin,Total 0.4 mg/dL (0.2-1.2); Blood Urea Nitrogen 24 mg/dL (7-20); Calcium 9.1 mg/dL (8.6-10.8); Carbon Dioxide 20 mEq/L (19-29); Chloride 107 mEq/L (98-109); Globulin 3.2 g/dL (2.4-3.5); Glucose 354 mg/dL (70-99); Magnesium 1.3 mg/dL (1.6-2.6); Osmolality,Calculated 300 (280-300); Sodium 136 mEq/L (136-145); Total Protein 6.3 g/dL (6.0-8.3); eGFR For African Americans > 60 (> 60); eGFR For Non-African Americans 60 (> 60)
[2017-07-28] MEDS: Iron Polysaccharide Complex 150 MG CAPSULE PO SCH (07:52)
[2017-07-28] MEDS: Gabapentin 400 MG CAPSULE PO SCH ×3 (07:52→20:53)
[2017-07-28] MEDS: *HR* GlipiZIDE XL (24 HR) 10 MG TABLET PO SCH ×2 (07:53→16:39)
[2017-07-28] MEDS: Insulin LISPRO 300 UNITS/3 ML VIAL SQ SCH ×7 (07:53→20:57)
[2017-07-28] MEDS: Aspirin Enteric Coated 81 MG Tablet PO SCH (07:53)
[2017-07-28] MEDS: methylPREDNISolone 125 MG/2 ML VIAL IVP SCH ×3 (07:54→23:23)
[2017-07-28] MEDS: Doxycycline 100 MG CAPSULE PO SCH ×2 (11:31→23:24)
[2017-07-28] MEDS ORDERED: Insulin LISPRO 300 UNITS/3 ML VIAL SQ SCH (13:00)
--- NOTE | 2017-07-28 13:52 | Internal Med Progress Note ---
Date of Encounter: 07/28/17 Time of Encounter: 13:50 - Assessment and plan (1) Near syncope Current Visit: Yes Status: Acute (2) Atrial fibrillation with rapid ventricular response Current Visit: Yes Status: Acute (3) Coronary artery disease Current Visit: Yes Status: Acute Qualifiers: Coronary Disease-Associated Artery/Lesion type: [place] artery [place] vs. transplanted heart: [place] heart Associated angina: without angina Qualified Code(s): I25.10 - Atherosclerotic heart disease of [place] coronary artery without angina pectoris (4) Diabetes mellitus Current Visit: Yes Status: Chronic Qualifiers: Diabetes mellitus type: type 2 Diabetes mellitus complication status: with unspecified complications Diabetes mellitus bed bug exterminator insulin use: without bed bug exterminator use Qualified Code(s): E11.8 - Type 2 diabetes mellitus with unspecified complications - Subjective Interval history: Admitted for an near syncope with documented orthostatic hypotension in ER indicating underlying hypovolemia due to etiology is not clear at this time severe hypomagnesemia raising the question of laxatives versus diarrhea versus diuretics. Patient has diabetes and severe triple vessel disease. Previous echo and cardiac catheter showed EF of 40-45%. Patient is also on Xarelto for atrial fibrillation. Patient has been given fluid and low magnesium has been corrected. Repeat orthostatics obtain PT evaluation and repeat echocardiogram to make sure that he is not a fall risk considering the fact that he is on anticoagulation. Patient is diabetic Accu-Chek 4 times a day with sliding scale coverage and continue home medication. 07/28 magnesium was supplemented but is still low while there is no obvious renal or colon loss of magnesium. Potassium is borderline. Since her cardiac surgery she has been quite fatigued. This raises the question of adrenal insufficiency. I will order TSH and ACTH Aldactone cortisol and ACTH stimulation test. If above are abnormal we can do CT abdomen. Might need endocrine consult. Discussed with patient. - Constitutional Vitals: Temp Pulse Resp BP Pulse Ox 98.1 F 99 13 103/68 97 07/28/17 11:38 07/28/17 11:38 07/28/17 11:38 07/28/17 11:38 07/28/17 11:38 General appearance: Present: A&O X 3, pleasant, no acute distress, answers questions appropriately - Head Head exam: Present: atraumatic, normocephalic - Eye Eye exam: Present: PERRL, conjuntiva pink, sclera anicteric Pupils: Present: PERRL - Neck Neck exam general surgery: Present: supple, trachea midline. Absent: lymphadenopathy - Respiratory Respiratory exam: Present: CTAB. Absent: accessory muscle use, rales, rhonchi, wheezes - Cardiovascular Cardiovascular exam: Present: RRR, +S1, +S2. Absent: diastolic murmur, gallop, rubs, systolic murmur - GI/Abdominal GI/Abdominal exam: Present: normal bowel sounds, soft, no peritoneal signs. Absent: distended, tenderness - Extremities Exam Extremities exam: Present: warm, radial pulses palpable and symmetrical. Absent : calf tenderness, cyanotic, pedal edema - Neurological Exam Neurological exam: Present: CN II-XII intact, oriented X3, no focal deficits. Absent: pronater drift, facial droop, speech deficit - Skin Skin exam: Present: dry, intact Internal Medicine: Result - Labs CBC & Chem 7: 07/28/17 04:57 07/28/17 04:57 Labs: Short CBC 07/28/17 Range/Units 04:57 WBC 9.6 (4.3-11.1) K/mcL Hgb 11.2 L (11.5-15.4) g/dL Hct 36.3 (35.3-44.9) % Plt Count 283 (140-400) K/mcL Neutrophils # 8.9 (1.6-8.9) K/mcL BMP 07/28/17 04:57 Sodium 136 Potassium 5.0 H Chloride 107 Carbon Dioxide 20 BUN 24 H Creatinine 0.94 Glucose 354 H Calcium 9.1 Liver Function 07/28/17 Range/Units 04:57 Total Bilirubin 0.4 (0.2-1.2) mg/dL AST 6 (5-34) Units/L ALT 9 (0-55) Units/L Alkaline Phosphatase 64 (38-126) Units/L Albumin 3.1 L (3.5-5.0) g/dL - ABG Interpretation ABG results: PT/INR, D-dimer PT 13.1 Seconds (9.4-12.1) H 07/27/17 00:29 Consult Discharge Plan - Plan Referrals: Juaquin Nelson MD [Primary Care Provider] -
[2017-07-28] MEDS: *HR* Rivaroxaban 10 MG TABLET PO SCH (16:39)
[2017-07-28 20:22] LABS: Bilirubin,Urine Negative (Negative); Blood,Urine Negative (Negative); Clarity,Urine Clear (Clear); Color,Urine Yellow (Yellow); Glucose,Urine (UA) >=1000 mg/dL (Normal); Ketones,Urine Negative (Negative); Leukocyte Esterase,Urine Negative (Negative); Nitrite,Urine Negative (Negative); Protein,Urine Negative (Neg-Trace); Specific Gravity,Urine 1.019 (1.010-1.025); Urobilinogen,Urine Normal (Normal)
[2017-07-28] MEDS: Latanoprost 2.5 ML BOTTLE BOTH EYES SCH (21:46)
[2017-07-29] MEDS: Ipratropium/Albuterol Neb 3 ML IH SCH ×4 (04:19→22:48)
[2017-07-29] MEDS ORDERED: Cosyntropin 250 MCG/2 ML VIAL IVP ONE (06:00)
[2017-07-29 06:25] LABS: Hematocrit 34.5 % (35.3-44.9); Hemoglobin 10.9 g/dL (11.5-15.4); Immature Granulocytes % 0.6 % (0-4); Lymphocytes # 0.5 K/mcL (0.6-4.6); Lymphocytes % 4.6 %; Mean Corpuscular HGB Conc 31.6 g/dL (31.6-35.5); Mean Corpuscular Hemoglobin 26.1 pg (28.0-33.3); Mean Corpuscular Volume 82.7 fL (83.0-100.0); Mean Platelet Volume 10.5 fL (9.4-12.4); Monocytes # 0.2 K/mcL (0.0-1.3); Monocytes % 1.5 %; Neutrophils # 10.4 K/mcL (1.6-8.9); Platelet Count 271 K/mcL (140-400); Red Blood Count 4.17 M/mcL (3.82-4.97); Red Cell Distribution Width 15.2 % (11.5-14.5); Segmented Neutrophils % 93.3 %
[2017-07-29 06:39] LABS: Alanine Aminotransferase 9 Units/L (0-55); Albumin 3.1 g/dL (3.5-5.0); Albumin/Globulin Ratio 1.1 (1.1-2.2); Alkaline Phosphatase 57 Units/L (38-126); Aspartate Amino Transferase 7 Units/L (5-34); BUN/Creatinine Ratio 33 (6-26); Bilirubin,Total 0.3 mg/dL (0.2-1.2); Blood Urea Nitrogen 28 mg/dL (7-20); Calcium 9.2 mg/dL (8.6-10.8); Carbon Dioxide 22 mEq/L (19-29); Chloride 107 mEq/L (98-109); Globulin 2.8 g/dL (2.4-3.5); Glucose 323 mg/dL (70-99); Magnesium 1.4 mg/dL (1.6-2.6); Osmolality,Calculated 302 (280-300); Sodium 137 mEq/L (136-145); Total Protein 5.9 g/dL (6.0-8.3); eGFR For African Americans > 60 (> 60); eGFR For Non-African Americans > 60 (> 60)
[2017-07-29] MEDS: Insulin LISPRO 300 UNITS/3 ML VIAL SQ SCH ×7 (08:20→21:12)
[2017-07-29] MEDS: Aspirin Enteric Coated 81 MG Tablet PO SCH (08:21)
[2017-07-29] MEDS: methylPREDNISolone 125 MG/2 ML VIAL IVP SCH ×3 (08:21→23:36)
[2017-07-29] MEDS: Gabapentin 400 MG CAPSULE PO SCH ×3 (08:21→21:09)
[2017-07-29] MEDS: Iron Polysaccharide Complex 150 MG CAPSULE PO SCH (08:21)
[2017-07-29] MEDS: *HR* GlipiZIDE XL (24 HR) 10 MG TABLET PO SCH ×2 (08:21→16:27)
[2017-07-29] MEDS: Doxycycline 100 MG CAPSULE PO SCH ×2 (10:51→23:37)
--- NOTE | 2017-07-29 15:12 | Internal Med Progress Note ---
Date of Encounter: 07/29/17 Time of Encounter: 15:09 - Assessment and plan (1) Near syncope Current Visit: Yes Status: Acute (2) Atrial fibrillation with rapid ventricular response Current Visit: Yes Status: Acute (3) Coronary artery disease Current Visit: Yes Status: Acute Qualifiers: Coronary Disease-Associated Artery/Lesion type: [place] artery [place] vs. transplanted heart: [place] heart Associated angina: without angina Qualified Code(s): I25.10 - Atherosclerotic heart disease of [place] coronary artery without angina pectoris (4) Diabetes mellitus Current Visit: Yes Status: Chronic Qualifiers: Diabetes mellitus type: type 2 Diabetes mellitus complication status: with unspecified complications Diabetes mellitus long winder tender insulin use: without long winder tender use Qualified Code(s): E11.8 - Type 2 diabetes mellitus with unspecified complications - Subjective Interval history: Admitted for an near syncope with documented orthostatic hypotension in ER indicating underlying hypovolemia due to etiology is not clear at this time severe hypomagnesemia raising the question of laxatives versus diarrhea versus diuretics. Patient has diabetes and severe triple vessel disease. Previous echo and cardiac catheter showed EF of 40-45%. Patient is also on Xarelto for atrial fibrillation. Patient has been given fluid and low magnesium has been corrected. Repeat orthostatics obtain PT evaluation and repeat echocardiogram to make sure that he is not a fall risk considering the fact that he is on anticoagulation. Patient is diabetic Accu-Chek 4 times a day with sliding scale coverage and continue home medication. 07/28 magnesium was supplemented but is still low while there is no obvious renal or colon loss of magnesium. Potassium is borderline. Since her cardiac surgery she has been quite fatigued. This raises the question of adrenal insufficiency. I will order TSH and ACTH Aldactone cortisol and ACTH stimulation test. If above are abnormal we can do CT abdomen. Might need endocrine consult. Discussed with patient. 07/29 asymptomatic. Feeling better. Magnesium is low again and 2 g was given and repeat magnesium level. As noted above her potassium is borderline high while magnesium is low without any explanation or renal or GI loss. Her cortisol level was checked as well as TSH. TSH appears suppressant cortisol random cortisol is 1.2 which is less than adequate. ACTH stimulation test ordered. Highly suspicious for Jan disease of adrenal insufficiency. If ACTH is positive then will go for MRI of adrenal gland and pitutarity gland. - Constitutional Vitals: Temp Pulse Resp BP Pulse Ox 98.4 F 91 17 105/69 97 07/29/17 10:52 07/29/17 10:52 07/29/17 10:52 07/29/17 10:52 07/29/17 10:52 General appearance: Present: A&O X 3, pleasant, no acute distress, answers questions appropriately - Head Head exam: Present: atraumatic, normocephalic - Eye Eye exam: Present: PERRL, conjuntiva pink, sclera anicteric Pupils: Present: PERRL - Neck Neck exam general surgery: Present: supple, trachea midline. Absent: lymphadenopathy - Respiratory Respiratory exam: Present: CTAB. Absent: accessory muscle use, rales, rhonchi, wheezes - Cardiovascular Cardiovascular exam: Present: RRR, +S1, +S2. Absent: diastolic murmur, gallop, rubs, systolic murmur - GI/Abdominal GI/Abdominal exam: Present: normal bowel sounds, soft, no peritoneal signs. Absent: distended, tenderness - Extremities Exam Extremities exam: Present: warm, radial pulses palpable and symmetrical. Absent : calf tenderness, cyanotic, pedal edema - Neurological Exam Neurological exam: Present: CN II-XII intact, oriented X3, no focal deficits. Absent: pronater drift, facial droop, speech deficit - Skin Skin exam: Present: dry, intact Internal Medicine: Result - Labs CBC & Chem 7: 07/29/17 06:07 07/29/17 06:07 Labs: Short CBC 07/29/17 Range/Units 06:07 WBC 11.1 (4.3-11.1) K/mcL Hgb 10.9 L (11.5-15.4) g/dL Hct 34.5 L (35.3-44.9) % Plt Count 271 (140-400) K/mcL Neutrophils # 10.4 H (1.6-8.9) K/mcL BMP 07/29/17 06:07 Sodium 137 Potassium 5.0 H Chloride 107 Carbon Dioxide 22 BUN 28 H Creatinine 0.85 Glucose 323 H Calcium 9.2 Liver Function 07/29/17 Range/Units 06:07 Total Bilirubin 0.3 (0.2-1.2) mg/dL AST 7 (5-34) Units/L ALT 9 (0-55) Units/L Alkaline Phosphatase 57 (38-126) Units/L Albumin 3.1 L (3.5-5.0) g/dL Urine 07/28/17 Range/Units 20:14 Urine Color Yellow (Yellow) Urine Clarity Clear (Clear) Urine pH 6.0 (5.0-8.0) pH Units Ur Specific [place] 1.019 (1.010-1.025) Urine Protein Negative (Neg-Trace) mg/dL Urine Glucose (UA) >=1000 H (Normal) mg/dL - ABG Interpretation ABG results: PT/INR, D-dimer PT 13.1 Seconds (9.4-12.1) H 07/27/17 00:29 - Impressions Impressions Echocardiogram 07/27/17 08:38 Impressions: Atrial fibrillation. LVEF 65%. Mild concentric left ventricular hypertrophy. Indeterminate diastolic function. Mildly dilated left atrium. Trace mitral regurgitation. Mild tricuspid regurgitation. Left Ventricular Wall Motion: Rest Echo Findings All wall segments showed normal motion. Findings: Study Quality * Technically adequate exam. ECG Findings * Atrial fibrillation. Left Ventricle * LVEF 65%. * Mild concentric left ventricular hypertrophy. * There is no LV thrombus. * Indeterminate diastolic function. Left Atrium * Mildly dilated left atrium. Right Ventricle * Normal right ventricular structure and function. Right Atrium * Normal right atrial size. Interatrial Septum * No evidence of PFO by color Doppler. Aortic Valve * Trileaflet aortic valve. * No aortic regurgitation. * No aortic stenosis. Mitral Valve * Trace mitral regurgitation. Tricuspid Valve * Normal tricuspid valve structure and function. * Mild tricuspid regurgitation. Pulmonic Valve * Pulmonic valve not well visualized. Aorta * Normally sized aortic root. Pericardium * The pericardium appears normal. Consult Discharge Plan - Plan Referrals: Juaquin Nelson MD [Primary Care Provider] - (web request sent on 07/29/17)
[2017-07-29] MEDS: *HR* Rivaroxaban 10 MG TABLET PO SCH (16:27)
[2017-07-29] MEDS: Latanoprost 2.5 ML BOTTLE BOTH EYES SCH (21:11)
[2017-07-30] MEDS: Ipratropium/Albuterol Neb 3 ML IH SCH ×2 (03:18→10:45)
[2017-07-30 04:52] LABS: Hematocrit 33.3 % (35.3-44.9); Hemoglobin 10.7 g/dL (11.5-15.4); Immature Granulocytes % 1.1 % (0-4); Lymphocytes % 6.2 %; Mean Corpuscular HGB Conc 32.1 g/dL (31.6-35.5); Mean Corpuscular Hemoglobin 26.6 pg (28.0-33.3); Mean Corpuscular Volume 82.8 fL (83.0-100.0); Mean Platelet Volume 10.6 fL (9.4-12.4); Monocytes % 1.9 %; Platelet Count 257 K/mcL (140-400); Red Blood Count 4.02 M/mcL (3.82-4.97); Red Cell Distribution Width 15.7 % (11.5-14.5); Segmented Neutrophils % 90.8 %
[2017-07-30 04:53] LABS: Lymphocytes # 0.6 K/mcL (0.6-4.6); Monocytes # 0.2 K/mcL (0.0-1.3); Neutrophils # 8.8 K/mcL (1.6-8.9)
[2017-07-30 05:29] LABS: Alanine Aminotransferase 8 Units/L (0-55); Albumin 2.9 g/dL (3.5-5.0); Albumin/Globulin Ratio 1.1 (1.1-2.2); Alkaline Phosphatase 55 Units/L (38-126); Aspartate Amino Transferase 7 Units/L (5-34); BUN/Creatinine Ratio 36 (6-26); Bilirubin,Total 0.2 mg/dL (0.2-1.2); Blood Urea Nitrogen 31 mg/dL (7-20); Calcium 8.9 mg/dL (8.6-10.8); Carbon Dioxide 20 mEq/L (19-29); Chloride 108 mEq/L (98-109); Globulin 2.7 g/dL (2.4-3.5); Glucose 328 mg/dL (70-99); Magnesium 1.4 mg/dL (1.6-2.6); Osmolality,Calculated 301 (280-300); Potassium 5.1 mEq/L (3.5-4.5); Sodium 136 mEq/L (136-145); Total Protein 5.6 g/dL (6.0-8.3); eGFR For African Americans > 60 (> 60); eGFR For Non-African Americans > 60 (> 60)
[2017-07-30 05:44] LABS: Thyroid Stimulating Hormone 0.071 mcIU/mL (0.350-4.840); Triiodothyronine (T3) Free 2.09 pg/mL (1.71-3.71)
[2017-07-30] MEDS: Aspirin Enteric Coated 81 MG Tablet PO SCH (07:37)
[2017-07-30] MEDS: *HR* GlipiZIDE XL (24 HR) 10 MG TABLET PO SCH ×2 (07:37→17:35)
[2017-07-30] MEDS: methylPREDNISolone 125 MG/2 ML VIAL IVP SCH (07:37)
[2017-07-30] MEDS: Gabapentin 400 MG CAPSULE PO SCH ×3 (07:37→21:16)
[2017-07-30] MEDS: Iron Polysaccharide Complex 150 MG CAPSULE PO SCH (07:37)
[2017-07-30] MEDS: Insulin LISPRO 300 UNITS/3 ML VIAL SQ SCH ×7 (07:38→21:15)
--- NOTE | 2017-07-30 09:37 | Internal Med Progress Note ---
Date of Encounter: 07/30/17 Time of Encounter: 09:35 - Assessment and plan (1) Near syncope Current Visit: Yes Status: Acute (2) Atrial fibrillation with rapid ventricular response Current Visit: Yes Status: Acute (3) Coronary artery disease Current Visit: Yes Status: Acute Qualifiers: Coronary Disease-Associated Artery/Lesion type: [place] artery [place] vs. transplanted heart: [place] heart Associated angina: without angina Qualified Code(s): I25.10 - Atherosclerotic heart disease of [place] coronary artery without angina pectoris (4) Diabetes mellitus Current Visit: Yes Status: Chronic Qualifiers: Diabetes mellitus type: type 2 Diabetes mellitus complication status: with unspecified complications Diabetes mellitus buttermaker insulin use: without buttermaker use Qualified Code(s): E11.8 - Type 2 diabetes mellitus with unspecified complications - Subjective Interval history: Admitted for an near syncope with documented orthostatic hypotension in ER indicating underlying hypovolemia due to etiology is not clear at this time severe hypomagnesemia raising the question of laxatives versus diarrhea versus diuretics. Patient has diabetes and severe triple vessel disease. Previous echo and cardiac catheter showed EF of 40-45%. Patient is also on Xarelto for atrial fibrillation. Patient has been given fluid and low magnesium has been corrected. Repeat orthostatics obtain PT evaluation and repeat echocardiogram to make sure that he is not a fall risk considering the fact that he is on anticoagulation. Patient is diabetic Accu-Chek 4 times a day with sliding scale coverage and continue home medication. 07/28 magnesium was supplemented but is still low while there is no obvious renal or colon loss of magnesium. Potassium is borderline. Since her cardiac surgery she has been quite fatigued. This raises the question of adrenal insufficiency. I will order TSH and ACTH Aldactone cortisol and ACTH stimulation test. If above are abnormal we can do CT abdomen. Might need endocrine consult. Discussed with patient. 07/29 asymptomatic. Feeling better. Magnesium is low again and 2 g was given and repeat magnesium level. As noted above her potassium is borderline high while magnesium is low without any explanation or renal or GI loss. Her cortisol level was checked as well as TSH. TSH appears suppressant cortisol random cortisol is 1.2 which is less than adequate. ACTH stimulation test ordered. Highly suspicious for Jan disease of adrenal insufficiency. If ACTH is positive then will go for MRI of adrenal gland and pitutarity gland. 07/30 patient magnesium is is still low and we will load her with 6 g of magnesium today. Potassium is also borderline high. Highly suspicious for adrenal insufficiency. We did ACTH stimulation test without realizing that she is on high-dose Solu-Medrol. Although test results showed suppressed response but it is not valid therefore I will DC Solu-Medrol as her breathing seems to be better and she is refusing nebulizers. ACTH is stimulation test can be ordered after 24 hours.. TSH is low but T3 and T4 are normal. Order MRI with contrast brain/ultrasound thyroid/CT abdomen with contrast. Blood sugars are running high therefore Levemir added on top of Humalog. Unfortunately we do not have inpatient endocrine CONSULT available.. If magnesium cannot be controlled she might need to be transferred to [facility] for endocrinology consult as inpatient. - Constitutional Vitals: Temp Pulse Resp BP Pulse Ox 97.7 F 89 20 108/73 97 07/30/17 07:12 07/30/17 07:12 07/30/17 07:12 07/30/17 07:12 07/30/17 07:12 General appearance: Present: A&O X 3, pleasant, no acute distress, answers questions appropriately - Head Head exam: Present: atraumatic, normocephalic - Eye Eye exam: Present: PERRL, conjuntiva pink, sclera anicteric Pupils: Present: PERRL - Neck Neck exam general surgery: Present: supple, trachea midline. Absent: lymphadenopathy - Respiratory Respiratory exam: Present: CTAB. Absent: accessory muscle use, rales, rhonchi, wheezes - Cardiovascular Cardiovascular exam: Present: RRR, +S1, +S2. Absent: diastolic murmur, gallop, rubs, systolic murmur - GI/Abdominal GI/Abdominal exam: Present: normal bowel sounds, soft, no peritoneal signs. Absent: distended, tenderness - Extremities Exam Extremities exam: Present: warm, radial pulses palpable and symmetrical. Absent : calf tenderness, cyanotic, pedal edema - Neurological Exam Neurological exam: Present: CN II-XII intact, oriented X3, no focal deficits. Absent: pronater drift, facial droop, speech deficit - Skin Skin exam: Present: dry, intact Internal Medicine: Result - Labs CBC & Chem 7: 07/30/17 04:23 07/30/17 04:23 Labs: Short CBC 07/30/17 Range/Units 04:23 WBC 9.7 (4.3-11.1) K/mcL Hgb 10.7 L (11.5-15.4) g/dL Hct 33.3 L (35.3-44.9) % Plt Count 257 (140-400) K/mcL Neutrophils # 8.8 (1.6-8.9) K/mcL BMP 07/30/17 04:23 Sodium 136 Potassium 5.1 H Chloride 108 Carbon Dioxide 20 BUN 31 H Creatinine 0.85 Glucose 328 H Calcium 8.9 Liver Function 07/30/17 Range/Units 04:23 Total Bilirubin 0.2 (0.2-1.2) mg/dL AST 7 (5-34) Units/L ALT 8 (0-55) Units/L Alkaline Phosphatase 55 (38-126) Units/L Albumin 2.9 L (3.5-5.0) g/dL - ABG Interpretation ABG results: PT/INR, D-dimer PT 13.1 Seconds (9.4-12.1) H 07/27/17 00:29 Consult Discharge Plan - Plan Referrals: Juaquin Nelson MD [Primary Care Provider] - (web request sent on 07/29/17)
[2017-07-30] MEDS: Doxycycline 100 MG CAPSULE PO SCH ×2 (10:31→23:50)
[2017-07-30] MEDS ORDERED: Ipratropium/Albuterol Neb 3 ML IH PRN (10:43)
[2017-07-30] MEDS ORDERED: Hydrocortisone Sodium Succ 100 MG/2 ML VIAL IVP SCH (16:00)
[2017-07-30] MEDS: *HR* Rivaroxaban 10 MG TABLET PO SCH (17:36)
[2017-07-30] MEDS ORDERED: Insulin DETEMIR 100 UNIT/ML X5UNITS SQ SCH (21:00)
[2017-07-30] MEDS: Latanoprost 2.5 ML BOTTLE BOTH EYES SCH (21:17)
[2017-07-31 04:55] LABS: Basophils % 0.1 %; Eosinophils % 0.1 %; Hematocrit 35.7 % (35.3-44.9); Hemoglobin 11.1 g/dL (11.5-15.4); Immature Granulocytes % 0.7 % (0-4); Lymphocytes # 2.3 K/mcL (0.6-4.6); Lymphocytes % 24.9 %; Mean Corpuscular HGB Conc 31.1 g/dL (31.6-35.5); Mean Corpuscular Hemoglobin 26.1 pg (28.0-33.3); Mean Corpuscular Volume 83.8 fL (83.0-100.0); Mean Platelet Volume 10.3 fL (9.4-12.4); Monocytes # 0.7 K/mcL (0.0-1.3); Monocytes % 7.7 %; Neutrophils # 6.1 K/mcL (1.6-8.9); Platelet Count 299 K/mcL (140-400); Red Blood Count 4.26 M/mcL (3.82-4.97); Red Cell Distribution Width 15.9 % (11.5-14.5); Segmented Neutrophils % 66.5 %
[2017-07-31 05:12] LABS: Alanine Aminotransferase 19 Units/L (0-55); Albumin 2.8 g/dL (3.5-5.0); Alkaline Phosphatase 56 Units/L (38-126); Aspartate Amino Transferase 16 Units/L (5-34); BUN/Creatinine Ratio 34 (6-26); Bilirubin,Total 0.2 mg/dL (0.2-1.2); Blood Urea Nitrogen 26 mg/dL (7-20); Calcium 8.8 mg/dL (8.6-10.8); Carbon Dioxide 26 mEq/L (19-29); Chloride 110 mEq/L (98-109); Globulin 2.8 g/dL (2.4-3.5); Glucose 135 mg/dL (70-99); Osmolality,Calculated 295 (280-300); Potassium 4.8 mEq/L (3.5-4.5); Sodium 139 mEq/L (136-145); Total Protein 5.6 g/dL (6.0-8.3); eGFR For African Americans > 60 (> 60); eGFR For Non-African Americans > 60 (> 60)
[2017-07-31] MEDS: Insulin LISPRO 300 UNITS/3 ML VIAL SQ SCH ×4 (07:38→17:33)
[2017-07-31] MEDS: Gabapentin 400 MG CAPSULE PO SCH ×2 (07:43→15:19)
[2017-07-31] MEDS: Iron Polysaccharide Complex 150 MG CAPSULE PO SCH (07:43)
[2017-07-31] MEDS: *HR* GlipiZIDE XL (24 HR) 10 MG TABLET PO SCH (07:43)
[2017-07-31] MEDS: Aspirin Enteric Coated 81 MG Tablet PO SCH (07:43)
[2017-07-31 09:24] LABS: Magnesium 2.2 mg/dL (1.6-2.6)
[2017-07-31] MEDS: Doxycycline 100 MG CAPSULE PO SCH (11:21)
[2017-07-31 17:00] VITALS: BP 105/70
--- NOTE | 2017-07-31 17:16 | Discharge Summary ---
Date of Encounter: 07/31/17 Time of Encounter: 17:14 - Discharge Diagnosis (1) Near syncope Priority: Primary Status: Acute (2) Dehydration Priority: Primary Status: Acute (3) Hypomagnesemia Priority: Primary Status: Acute (4) Bronchitis Priority: Primary Status: Resolved Comments: Finished Abx course (5) Electrolyte abnormality Priority: Primary Status: Acute (6) Generalized weakness Priority: Secondary Status: Resolved (7) Multiple thyroid nodules Priority: Secondary Status: Chronic (8) Diabetes mellitus Priority: Secondary Status: Chronic Qualifiers: Diabetes mellitus type: type 2 Diabetes mellitus complication status: with unspecified complications Diabetes mellitus prison insulin use: without prison use Qualified Code(s): E11.8 - Type 2 diabetes mellitus with unspecified complications - Discharge Medications Prescriptions: Magnesium Oxide [Mag-Ox] 400 mg PO BID #60 tablet Home Medications: Albuterol Neb [Proventil Neb] 3 ml IH TID 06/26/16 [History] Albuterol Sulfate [Ventolin Hfa] 2 puff IH Q4H PRN 06/26/16 [History] Gabapentin [Neurontin] 1,200 mg PO TID 06/26/16 [History] GlipiZIDE [Glipizide Xl] 10 mg PO BID 06/26/16 [History] Latanoprost [Xalatan] 1 drop OP QPM 06/26/16 [History] Linagliptin [Tradjenta] 5 mg PO DAILY 06/26/16 [History] Lisinopril [Zestril] 10 mg PO DAILY 06/26/16 [History] Loratadine [Claritin] 10 mg PO DAILY 06/26/16 [History] Omeprazole [PriLOSEC] 20 mg PO BID 06/26/16 [History] Oxycodone HCl/Acetaminophen [Percocet 7.5-325 mg Tablet] 1 tab PO Q6H PRN [History] Theophylline Anhydrous [Theophylline] 400 mg PO BID 06/26/16 [History] Aspirin Enteric Coated [Aspirin EC] 81 mg PO DAILY #60 tablet.dr 07/06/16 [Rx] Atorvastatin [Lipitor] 40 mg PO HS #30 tablet 07/06/16 [Rx] Fluticasone Propionate Nasal [Flonase] 50 mcg NS DAILY PRN 05/15/17 [History] Iron Polysaccharide Complex [Pro Fe] 180 mg PO DAILY 05/15/17 [History] Ondansetron HCl [Zofran] 4 mg PO Q6H PRN 05/15/17 [History] Rivaroxaban [Xarelto] 20 mg PO DAILY 05/15/17 [History] Metoprolol [Lopressor] 25 mg PO BID 07/26/17 [History] Magnesium Oxide [Mag-Ox] 400 mg PO BID #60 tablet 07/31/17 [Rx] Metformin HCl [Glucophage] 1,000 mg PO BID 30 Days tablet 07/31/17 [Rx] Allergies/Adverse Reactions: 3 Allergy/AdvReac Type Severity Reaction Status Date / Time methylprednisolone AdvReac Diarrhea Verified 03/12/17 17:29 Penicillins AdvReac Swelling Verified 07/26/17 09:44 of Lip/Tongue/Throat rofecoxib AdvReac Nausea Verified 03/12/17 17:29 Procedures/tests Complete & Pending: Procedures Performed prior 72 hours Category Date Time Status CT abd pelvis w iv no oral [CT] Routine Cat Scan 07/30/17 12:30 Completed US thyroid [US] Routine Exams 07/30/17 12:45 Completed MR head wo/w con [MR] Routine MRI 07/30/17 09:28 Completed Date of admission: 07/26/17 08:41 Primary care physician: Juaquin Nelson MD Consults: 07/27/17 08:44 PT [Consult to Physical Therapy] [CONS] Routine Comment: Evaluate, develop and implement POC Reason for Consult: Near syncope - Patient Status Disposition: Home Health Service Condition: Good Overall status at discharge: patient is back to baseline - Discharge Instructions Follow Up With: Juaquin Nelson MD [Primary Care Provider] - (web request sent on 07/29/17) Additional Instructions: please go for blood test BMP and Mg levels in 2 days and follow up with PCP for test results - Diet and Activity Activity: increase activity as tolerated Diet: low salt diet Hospital course: Ms. Birmingham is a 67 year old female with known PMH of HTN, HLD, DM2, wo recently had bronchitis with asthma exacerbation for which pt was started on tapering steroids and empirical abx with Levofloxacin. Now she presented to our ER 5 days ago with generalized weakness and dizziness and muscle cramps. She happened to have severe electrolyte abnormalities with low Magnesium @ 0.9 mostly due to dehdyration. With IV fluids and Mg supplements her Mg got corrected. Also continued her on Steroids and abx Doxycycline. Pt started tolerating PO intake well, her muscle cramps and generalized weakness also improved. She had an extesnvie work up done here suspecting Adrenal insufficiency for her electrolyte abnormality. Her randsome Cortisol level and Cortisol resp to ACTH came back as low, however pt was give steroids prior to this test. So those results are not accurate. So recommend the pt to go for out pt BMP and Mg, if they still abnormal, recommend to f/u with PCP for further work up. Also we continued tapering her steroids, which she did tolerate well. So stopped the steroids now. She also finished her complete abx course here for her bronchitis. - Time Spent with Patient Total time spent providing and/or coordinating discharge services: - Constitutional Vitals: Temp Pulse Resp BP Pulse Ox 98.1 F 84 17 105/70 94 07/31/17 16:55 07/31/17 16:55 07/31/17 16:55 07/31/17 16:55 07/31/17 16:55 General appearance: Present: A&O X 3, pleasant, no acute distress, answers questions appropriately - Head Head exam: Present: atraumatic, normal inspection - Neck Neck exam general surgery: Present: supple - Respiratory Respiratory exam: Present: decreased breath sounds. Absent: rales, respiratory distress, rhonchi, wheezes - Cardiovascular Cardiovascular exam: Present: RRR, +S1, +S2. Absent: systolic murmur - GI/Abdominal GI/Abdominal exam: Present: soft. Absent: rebound, rigid, tenderness - Extremities Exam Extremities exam: Absent: calf tenderness, pedal edema, tenderness - Back Exam Back exam: Absent: CVA tenderness (L), CVA tenderness (R) - Neurological Exam Neurological exam: Present: alert, oriented X3 - Psychiatric Psychiatric exam: Present: normal affect, normal mood
[2017-07-31] MEDS: *HR* Rivaroxaban 10 MG TABLET PO SCH (17:32)
== END 2017-07-31 18:13 | disposition home health service (06) ==
LOC: 2NENU 05:40 → EMEROO 05:40 → SUATTDRO 08:41 → 2ANU 13:15
PROVIDERS: ADMIT Internal Medicine; ATTEND Family Medicine

== ENCOUNTER 2018-03-23 13:37 | Observation (INO) ==
[2018-03-23] MEDS ORDERED: 0.9 % Sodium Chloride 1,000 ML IVC ONE ×2 (13:56→14:57)
--- NOTE | 2018-03-23 13:59 | Emergency Department Note ---
Disposition Clinical Impression: Dizziness Hypotension Qualifiers: Hypotension type: unspecified hypotension type Qualified Code(s): I95.9 - Hypotension, unspecified Anemia Qualifiers: Anemia type: unspecified type Qualified Code(s): D64.9 - Anemia, unspecified Disposition: Admitted As Inpatient Condition: Fair Referrals: Jauquin Nelson MD [Primary Care Provider] - Forms: ED Satisfaction Letter General Adult HPI - General Chief complaint: ED Chest Pain Stated complaint: BP LOW/Dizzy/SOB Time Seen by Provider: 03/23/18 13:47 Source: patient Mode of arrival: wheelchair Limitations: no limitations Nursing Notes Reviewed: Yes Vital Signs Reviewed: Yes - History of Present Illness HPI Narrative: 68-year-old female with a history of hypertension, diabetes, COPD, A. fib on Xarelto presents for evaluation of low blood pressure, dizziness and shortness of breath. Patient states she has been increasingly dyspneic and short of breath over the last few days. Patient states that she can only ambulate a few feet before feeling of lightheadedness and "blacking out". Patient denies any syncope. Patient states symptoms worse with exertion. Patient has noted some chest pain. Patient had a recent adjustment in her blood pressure medication with reduction of lisinopril. Patient reports some nausea but no vomiting. Patient reports a cough without a fever. Patient denies any blood in her stool or dark tarry stools. States she had a recent colonoscopy 4 months ago and had a couple polyps removed. Pain Scale: 5 - Related Data Home Medications Medication Instructions Recorded Confirmed Albuterol Neb [Proventil Neb] 3 ml IH TID 06/26/16 03/23/18 Albuterol Sulfate [Ventolin Hfa] 2 puff IH Q4H PRN 06/26/16 03/23/18 Gabapentin [Neurontin] 1,200 mg PO TID 06/26/16 03/23/18 GlipiZIDE [Glipizide Xl] 10 mg PO BID 06/26/16 03/23/18 Latanoprost [Xalatan] 1 drop OP QPM 06/26/16 03/23/18 Linagliptin [Tradjenta] 5 mg PO DAILY 06/26/16 03/23/18 Loratadine [Claritin] 10 mg PO DAILY 06/26/16 03/23/18 Omeprazole [PriLOSEC] 20 mg PO BID 06/26/16 03/23/18 Oxycodone HCl/Acetaminophen 1 tab PO Q6H PRN 06/26/16 03/23/18 [Percocet 7.5-325 mg Tablet] Theophylline Anhydrous 400 mg PO BID 06/26/16 03/23/18 [Theophylline] Fluticasone Propionate Nasal 50 mcg NS DAILY PRN 05/15/17 03/23/18 [Flonase] Iron Polysaccharide Complex [Pro 180 mg PO DAILY 05/15/17 03/23/18 Fe] Ondansetron HCl [Zofran] 4 mg PO Q6H PRN 05/15/17 03/23/18 Rivaroxaban [Xarelto] 20 mg PO DAILY 05/15/17 03/23/18 Carvedilol [Coreg] 6.25 mg PO BID 03/23/18 03/23/18 Lisinopril [Zestril] 5 mg PO DAILY 03/23/18 03/23/18 Previous Rx's Medication Instructions Recorded Aspirin Enteric Coated [Aspirin EC] 81 mg PO DAILY #60 tablet. 07/06/16 Atorvastatin [Lipitor] 40 mg PO HS #30 tablet 07/06/16 Magnesium Oxide [Mag-Ox] 400 mg PO BID #60 tablet 07/31/17 Metformin HCl [Glucophage] 1,000 mg PO BID 30 Days tablet 07/31/17 Allergies Allergy/AdvReac Type Severity Reaction Status Date / Time methylprednisolone AdvReac Diarrhea Verified 03/12/17 17:29 Penicillins AdvReac Swelling Verified 07/26/17 09:44 of Lip/Tongue/Throat rofecoxib AdvReac Nausea Verified 03/12/17 17:29 All systems ED: reviewed and negative except as stated. Constitutional: Denies: fever Cardiovascular: Reports: chest pain Respiratory: Reports: cough, dyspnea Gastrointestinal: Reports: nausea. Denies: abdominal pain, vomiting Past Medical History - Past Medical History Source: patient Medical history: Reports: asthma, coronary artery disease, diabetes, glaucoma, hypertension, other Surgical history: Reports: appendectomy, cataract, hysterectomy Psychiatric history: Reports: no psych history - Social History Smoking Status: Never smoker Smokeless Tobacco Status: No Alcohol use: Reports: none Drug use: Reports: none Physical Exam - General Limitations: no limitations General appearance: alert, in no apparent distress - Head Head exam: atraumatic, normocephalic, normal inspection - Eye Eye exam: Present: normal appearance, PERRL, EOMI - ENT ENT exam: normal exam, normal oropharynx, mucous membranes moist - Neck Neck exam: Present: normal inspection, full ROM, trachea midline - Chest Chest inspection: Present: normal inspection, symmetric chest wall rise - Respiratory Respiratory exam: Present: normal lung sounds bilaterally. Absent: respiratory distress - Cardiovascular Cardiovascular exam: Present: regular rate, normal rhythm. Absent: systolic murmur - Abdominal Exam Abdominal exam: Present: soft, Non-Tender - Extremities Exam Extremities exam: Present: normal inspection. Absent: pedal edema - Expanded Lower Extremity Exam Neurovascular/Tendon exam: Present: normal capillary refill - Back Exam Back exam: Present: normal inspection - Neurological Exam Neurological exam: Present: alert, oriented X3, CN II-XII intact - Skin Skin exam: Present: warm, dry, intact, pallor Course Course Narrative: Patient seen and examined. Patient was hypotensive at triage. Patient's repeat blood pressure in the treatment area improved. Patient is tachycardic and hypotensive concerns for shock. Patient will get IV fluid challenge. Patient's also on Xarelto type and screen. Patient also get chest x-ray urinalysis and basic labs. Disposition admission. - Reevaluation(s) Reevaluation #1: Patient seen and examined. Patient did not have a significant response after the initial fluid bolus. Patient has continued to mentate appropriately. Discussed placing a central line the patient states that she would not like to have a central line. Concerns of the patient's blood pressure and if need for pressors. Patient's records reviewed shows that she has a history of hypotension the past with workup that included endocrine and was on pressors in the past. Etiology at this point is unclear however the patient does not appear to be an infectious source. Time: 15:05 Reevaluation #2: Patient's lactate did come back elevated. The setting of hypotension patient will receive broad-spectrum antibiotics. Awaiting urinalysis. Time: 15:16 Reevaluation #3: Patient does appear to be fluid responsive. Will obtain CT chest abdomen pelvis due to the undifferentiated hypotension. Time: 16:06 Additional Reevaluation(s): 1715: Patient's blood pressure improved. Systolic blood pressure 120. Plan of care discussed. Vital Signs Temperature 98.5 F 03/23/18 13:45 Pulse Rate 79 03/23/18 13:45 Respiratory Rate 18 03/23/18 13:45 Blood Pressure 68/40 03/23/18 13:45 O2 Sat by Pulse Oximetry 94 03/23/18 13:45 Temperature 98.5 F 03/23/18 14:00 Pulse Rate 85 03/23/18 14:58 Respiratory Rate 20 03/23/18 14:58 Blood Pressure 86/53 03/23/18 14:58 O2 Sat by Pulse Oximetry 96 03/23/18 14:58 Oxygen Delivery Oxygen Delivery Room Air Medical Decision Making - MDM Narrative Medical decision making narrative: Patient presents for dizziness. Patient's also noted be hypotensive. Patient' s hypotension was unclear etiology. Review the record shows the patient has had history of hypotension. Patient did have an elevated lactate. Patient did respond to IV fluids. Does have 2 good peripherals. Hemoglobin is at baseline. Patient was started on broad-spectrum antibiotics given undifferentiated shock in the setting of elevated lactate. - Lab Data Lab results reviewed: Yes I reviewed the patient's lab results. Result diagrams: 03/23/18 13:55 03/23/18 13:55 Lab Results 03/23/18 03/23/18 03/23/18 Range/Units 13:55 13:55 13:55 WBC (4.3-11.1) K/mcL RBC (3.82-4.97) M/mcL Hgb (11.5-15.4) g/dL Hct (35.3-44.9) % MCV (83.0-100.0) fL MCH (28.0-33.3) pg MCHC (31.6-35.5) g/dL RDW (11.5-14.5) % Plt Count (140-400) K/mcL MPV (9.4-12.4) fL Immature Gran % (0-4) % Seg Neutrophils % % Lymphocytes % % Monocytes % % Eosinophils % % Basophils % % Neutrophils # (1.6-8.9) K/mcL Lymphocytes # (0.6-4.6) K/mcL Monocytes # (0.0-1.3) K/mcL Eosinophils # (0.0-0.6) K/mcL Basophils # (0.0-0.2) K/mcL PT 14.9 H (9.4-12.1) Seconds INR 1.3 APTT 36.8 H (26.0-36.0) Seconds Sodium (136-145) mEq/L Potassium (3.5-5.1) mEq/L Chloride (98-107) mEq/L Carbon Dioxide (23-29) mEq/L BUN (8-23) mg/dL Creatinine (0.60-1.20) mg/dL Est GFR ( Amer) (> 60) Est GFR (Non-Af Amer) (> 60) BUN/Creatinine Ratio (6-26) Glucose (70-105) mg/dL Calculated Osmolality (280-300) Lactic Acid (0.5-2.2) mmol/L Calcium (8.6-10.3) mg/dL Magnesium (1.6-2.6) mg/dL Troponin I (< 0.04) ng/mL B-Natriuretic Peptide 262 H (Less than 100) pg/mL TSH (0.340-5.600) mcIU/mL Random Cortisol mcg/dl Urine Color (Yellow) Urine Clarity (Clear) Urine pH (5.0-8.0) pH Units Ur Specific [place] (1.010-1.025) Urine Protein (Neg-Trace) mg/dL Urine Glucose (UA) (Normal) mg/dL Urine Ketones (Negative) mg/dL Urine Blood (Negative) Urine Nitrite (Negative) Urine Bilirubin (Negative) Urine Urobilinogen (Normal) mg/dL Ur Leukocyte Esterase (Negative) Urine Microscopic RBC (0-3) per hpf Urine Microscopic WBC (0-3) per hpf Ur Squamous Epith Cells (None-Few) per lpf Urine Bacteria (None-Few) per hpf Blood Type O POSITIVE Antibody Screen NEGATIVE 03/23/18 03/23/18 03/23/18 Range/Units 13:55 13:55 14:08 WBC 9.1 (4.3-11.1) K/mcL RBC 4.01 (3.82-4.97) M/mcL Hgb 10.8 L (11.5-15.4) g/dL Hct 34.2 L (35.3-44.9) % MCV 85.3 (83.0-100.0) fL MCH 26.9 L (28.0-33.3) pg MCHC 31.6 (31.6-35.5) g/dL RDW 14.0 (11.5-14.5) % Plt Count 281 (140-400) K/mcL MPV 10.5 (9.4-12.4) fL Immature Gran % 0.3 (0-4) % Seg Neutrophils % 66.8 % Lymphocytes % 21.7 % Monocytes % 8.8 % Eosinophils % 2.1 % Basophils % 0.3 % Neutrophils # 6.1 (1.6-8.9) K/mcL Lymphocytes # 2.0 (0.6-4.6) K/mcL Monocytes # 0.8 (0.0-1.3) K/mcL Eosinophils # 0.2 (0.0-0.6) K/mcL Basophils # 0.0 (0.0-0.2) K/mcL PT (9.4-12.1) Seconds INR APTT (26.0-36.0) Seconds Sodium 139 (136-145) mEq/L Potassium 4.9 (3.5-5.1) mEq/L Chloride 105 (98-107) mEq/L Carbon Dioxide 25 (23-29) mEq/L BUN 19 (8-23) mg/dL Creatinine 1.01 (0.60-1.20) mg/dL Est GFR ( Amer) > 60 (> 60) Est GFR (Non-Af Amer) 55 L (> 60) BUN/Creatinine Ratio 19 (6-26) Glucose 147 H (70-105) mg/dL Calculated Osmolality 293 (280-300) Lactic Acid 2.3 H (0.5-2.2) mmol/L Calcium 9.8 (8.6-10.3) mg/dL Magnesium 1.5 L (1.6-2.6) mg/dL Troponin I < 0.03 (< 0.04) ng/mL B-Natriuretic Peptide (Less than 100) pg/mL TSH 0.692 (0.340-5.600) mcIU/mL Random Cortisol 17.2 mcg/dl Urine Color (Yellow) Urine Clarity (Clear) Urine pH (5.0-8.0) pH Units Ur Specific [place] (1.010-1.025) Urine Protein (Neg-Trace) mg/dL Urine Glucose (UA) (Normal) mg/dL Urine Ketones (Negative) mg/dL Urine Blood (Negative) Urine Nitrite (Negative) Urine Bilirubin (Negative) Urine Urobilinogen (Normal) mg/dL Ur Leukocyte Esterase (Negative) Urine Microscopic RBC (0-3) per hpf Urine Microscopic WBC (0-3) per hpf Ur Squamous Epith Cells (None-Few) per lpf Urine Bacteria (None-Few) per hpf Blood Type Antibody Screen 03/23/18 Range/Units 15:43 WBC (4.3-11.1) K/mcL RBC (3.82-4.97) M/mcL Hgb (11.5-15.4) g/dL Hct (35.3-44.9) % MCV (83.0-100.0) fL MCH (28.0-33.3) pg MCHC (31.6-35.5) g/dL RDW (11.5-14.5) % Plt Count (140-400) K/mcL MPV (9.4-12.4) fL Immature Gran % (0-4) % Seg Neutrophils % % Lymphocytes % % Monocytes % % Eosinophils % % Basophils % % Neutrophils # (1.6-8.9) K/mcL Lymphocytes # (0.6-4.6) K/mcL Monocytes # (0.0-1.3) K/mcL Eosinophils # (0.0-0.6) K/mcL Basophils # (0.0-0.2) K/mcL PT (9.4-12.1) Seconds INR APTT (26.0-36.0) Seconds Sodium (136-145) mEq/L Potassium (3.5-5.1) mEq/L Chloride (98-107) mEq/L Carbon Dioxide (23-29) mEq/L BUN (8-23) mg/dL Creatinine (0.60-1.20) mg/dL Est GFR ( Amer) (> 60) Est GFR (Non-Af Amer) (> 60) BUN/Creatinine Ratio (6-26) Glucose (70-105) mg/dL Calculated Osmolality (280-300) Lactic Acid (0.5-2.2) mmol/L Calcium (8.6-10.3) mg/dL Magnesium (1.6-2.6) mg/dL Troponin I (< 0.04) ng/mL B-Natriuretic Peptide (Less than 100) pg/mL TSH (0.340-5.600) mcIU/mL Random Cortisol mcg/dl Urine Color Dark Yellow (Yellow) Urine Clarity Cloudy A (Clear) Urine pH 6.0 (5.0-8.0) pH Units Ur Specific [place] > 1.030 H (1.010-1.025) Urine Protein 100 H (Neg-Trace) mg/dL Urine Glucose (UA) Normal (Normal) mg/dL Urine Ketones Trace H (Negative) mg/dL Urine Blood Negative (Negative) Urine Nitrite Negative (Negative) Urine Bilirubin Small H (Negative) Urine Urobilinogen Normal (Normal) mg/dL Ur Leukocyte Esterase Small H (Negative) Urine Microscopic RBC 0-3 (0-3) per hpf Urine Microscopic WBC 0-3 (0-3) per hpf Ur Squamous Epith Cells Few (None-Few) per lpf Urine Bacteria Few (None-Few) per hpf Blood Type Antibody Screen - Radiology Data Radiology results reviewed: Yes I reviewed the patient's radiology results. Chest X-Ray 03/23/18 13:56 IMPRESSION: Stable exam without acute cardiopulmonary findings. D/ / Ariana Snell MD / Ariana Snell MD Interpreting Provider: Ariana Snell MD - EKG Data EKG #1 EKG attestation: Yes I reviewed and interpreted this EKG. Rate: tachycardia Rhythm: A.Fib Lynd/QRS: left axis deviation Voltage: decreased voltage throughout Q waves: II, III, aVF Interpretation: no acute changes, nonspecific ST-T wave changes S.B.A.R. - S.B.A.R. Situation: Demographics Background: Presenting Complaint Assessment: Vital Signs, Patient/Family Expectation Recommendation: Barrier(s) to disposition, Recommendation based on pending studies, treatments, or consults S.B.A.R. Report Given to: Dr. Kaitlyn ArvizuBNicciANeto Repor Time: 17:16
[2018-03-23 14:11] LABS: Basophils % 0.3 %; Eosinophils # 0.2 K/mcL (0.0-0.6); Eosinophils % 2.1 %; Hematocrit 34.2 % (35.3-44.9); Hemoglobin 10.8 g/dL (11.5-15.4); Immature Granulocytes % 0.3 % (0-4); Lymphocytes % 21.7 %; Mean Corpuscular HGB Conc 31.6 g/dL (31.6-35.5); Mean Corpuscular Hemoglobin 26.9 pg (28.0-33.3); Mean Corpuscular Volume 85.3 fL (83.0-100.0); Mean Platelet Volume 10.5 fL (9.4-12.4); Monocytes # 0.8 K/mcL (0.0-1.3); Monocytes % 8.8 %; Neutrophils # 6.1 K/mcL (1.6-8.9); Platelet Count 281 K/mcL (140-400); Red Blood Count 4.01 M/mcL (3.82-4.97); Segmented Neutrophils % 66.8 %
[2018-03-23 14:23] LABS: INR 1.3; Prothrombin Time 14.9 Seconds (9.4-12.1)
[2018-03-23 14:25] LABS: Activated Partial Thrombo Time 36.8 Seconds (26.0-36.0)
[2018-03-23 14:42] LABS: Troponin I < 0.03 ng/mL (< 0.04)
[2018-03-23 14:46] LABS: BUN/Creatinine Ratio 19 (6-26); Blood Urea Nitrogen 19 mg/dL (8-23); Calcium 9.8 mg/dL (8.6-10.3); Carbon Dioxide 25 mEq/L (23-29); Chloride 105 mEq/L (98-107); Glucose 147 mg/dL (70-105); Osmolality,Calculated 293 (280-300); Potassium 4.9 mEq/L (3.5-5.1); Sodium 139 mEq/L (136-145); eGFR For African Americans > 60 (> 60); eGFR For Non-African Americans 55 (> 60)
[2018-03-23 15:09] LABS: Magnesium 1.5 mg/dL (1.6-2.6)
[2018-03-23] MEDS ORDERED: Levofloxacin 750 MG/150 ML 750 MG/150 ML BAG IVPB ONE (15:15)
[2018-03-23] MEDS ORDERED: Cefepime HCl 1,000 MG in 0.9 % Sodium Chloride Mini Bag 100 ML IVPB ONE (15:16)
[2018-03-23 15:24] LABS: Thyroid Stimulating Hormone 0.692 mcIU/mL (0.340-5.600)
[2018-03-23 15:49] LABS: Bilirubin,Urine Small (Negative); Blood,Urine Negative (Negative); Clarity,Urine Cloudy (Clear); Color,Urine Dark Yellow (Yellow); Glucose,Urine (UA) Normal (Normal); Ketones,Urine Trace mg/dL (Negative); Leukocyte Esterase,Urine Small (Negative); Nitrite,Urine Negative (Negative); Protein,Urine 100 mg/dL (Neg-Trace); Specific Gravity,Urine > 1.030 (1.010-1.025); Urobilinogen,Urine Normal (Normal)
[2018-03-23 15:54] LABS: Bacteria,Urine Few per hpf (None-Few); RBC,Urine 0-3 per hpf (0-3); Squamous Epithelial Cell,Urine Few per lpf (None-Few); WBC,Urine 0-3 per hpf (0-3)
[2018-03-23] MEDS ORDERED: methylPREDNISolone 125 MG/2 ML VIAL IVP ONE (16:04)
[2018-03-23] MEDS ORDERED: Isovue-370 500 ML INFUS..BTL IV ONE (16:05)
--- NOTE | 2018-03-23 16:35 | Emergency Department Note ---
Disposition Clinical Impression: Dizziness Hypotension Qualifiers: Hypotension type: unspecified hypotension type Qualified Code(s): I95.9 - Hypotension, unspecified Anemia Qualifiers: Anemia type: unspecified type Qualified Code(s): D64.9 - Anemia, unspecified Disposition: Admitted As Inpatient Condition: Fair Referrals: Juaquin Nelson MD [Primary Care Provider] - Forms: ED Satisfaction Letter General Adult HPI - General Chief complaint: ED Chest Pain Stated complaint: BP LOW/Dizzy/SOB Time Seen by Provider: 03/23/18 13:47 Source: patient Mode of arrival: wheelchair Limitations: no limitations - History of Present Illness Pain Scale: 5 - Related Data Home Medications Medication Instructions Recorded Confirmed Albuterol Neb [Proventil Neb] 3 ml IH TID 06/26/16 03/23/18 Albuterol Sulfate [Ventolin Hfa] 2 puff IH Q4H PRN 06/26/16 03/23/18 Gabapentin [Neurontin] 1,200 mg PO TID 06/26/16 03/23/18 GlipiZIDE [Glipizide Xl] 10 mg PO BID 06/26/16 03/23/18 Latanoprost [Xalatan] 1 drop OP QPM 06/26/16 03/23/18 Linagliptin [Tradjenta] 5 mg PO DAILY 06/26/16 03/23/18 Loratadine [Claritin] 10 mg PO DAILY 06/26/16 03/23/18 Omeprazole [PriLOSEC] 20 mg PO BID 06/26/16 03/23/18 Oxycodone HCl/Acetaminophen 1 tab PO Q6H PRN 06/26/16 03/23/18 [Percocet 7.5-325 mg Tablet] Theophylline Anhydrous 400 mg PO BID 06/26/16 03/23/18 [Theophylline] Fluticasone Propionate Nasal 50 mcg NS DAILY PRN 05/15/17 03/23/18 [Flonase] Iron Polysaccharide Complex [Pro 180 mg PO DAILY 05/15/17 03/23/18 Fe] Ondansetron HCl [Zofran] 4 mg PO Q6H PRN 05/15/17 03/23/18 Rivaroxaban [Xarelto] 20 mg PO DAILY 05/15/17 03/23/18 Carvedilol [Coreg] 6.25 mg PO BID 03/23/18 03/23/18 Lisinopril [Zestril] 5 mg PO DAILY 03/23/18 03/23/18 Previous Rx's Medication Instructions Recorded Aspirin Enteric Coated [Aspirin EC] 81 mg PO DAILY #60 tablet. 07/06/16 Atorvastatin [Lipitor] 40 mg PO HS #30 tablet 07/06/16 Magnesium Oxide [Mag-Ox] 400 mg PO BID #60 tablet 07/31/17 Metformin HCl [Glucophage] 1,000 mg PO BID 30 Days tablet 07/31/17 Allergies Allergy/AdvReac Type Severity Reaction Status Date / Time methylprednisolone AdvReac Diarrhea Verified 03/12/17 17:29 Penicillins AdvReac Swelling Verified 07/26/17 09:44 of Lip/Tongue/Throat rofecoxib AdvReac Nausea Verified 03/12/17 17:29 Constitutional: Denies: fever Cardiovascular: Reports: chest pain Respiratory: Reports: cough, dyspnea Gastrointestinal: Reports: nausea. Denies: abdominal pain, vomiting Past Medical History - Past Medical History Medical history: Reports: asthma, coronary artery disease, diabetes, glaucoma, hypertension, other Surgical history: Reports: appendectomy, cataract, hysterectomy Psychiatric history: Reports: no psych history - Social History Smoking Status: Never smoker Smokeless Tobacco Status: No Alcohol use: Reports: none Drug use: Reports: none Physical Exam - General Limitations: no limitations General appearance: alert, in no apparent distress Course Vital Signs Temperature 98.5 F 03/23/18 13:45 Pulse Rate 79 03/23/18 13:45 Respiratory Rate 18 03/23/18 13:45 Blood Pressure 68/40 03/23/18 13:45 O2 Sat by Pulse Oximetry 94 03/23/18 13:45 Temperature 98.5 F 03/23/18 14:00 Pulse Rate 85 03/23/18 14:58 Respiratory Rate 20 03/23/18 14:58 Blood Pressure 86/53 03/23/18 14:58 O2 Sat by Pulse Oximetry 96 03/23/18 14:58 Oxygen Delivery Oxygen Delivery Room Air Medical Decision Making - Lab Data Result diagrams: 03/23/18 13:55 03/23/18 13:55 Lab Results 03/23/18 03/23/18 03/23/18 Range/Units 13:55 13:55 13:55 WBC (4.3-11.1) K/mcL RBC (3.82-4.97) M/mcL Hgb (11.5-15.4) g/dL Hct (35.3-44.9) % MCV (83.0-100.0) fL MCH (28.0-33.3) pg MCHC (31.6-35.5) g/dL RDW (11.5-14.5) % Plt Count (140-400) K/mcL MPV (9.4-12.4) fL Immature Gran % (0-4) % Seg Neutrophils % % Lymphocytes % % Monocytes % % Eosinophils % % Basophils % % Neutrophils # (1.6-8.9) K/mcL Lymphocytes # (0.6-4.6) K/mcL Monocytes # (0.0-1.3) K/mcL Eosinophils # (0.0-0.6) K/mcL Basophils # (0.0-0.2) K/mcL PT 14.9 H (9.4-12.1) Seconds INR 1.3 APTT 36.8 H (26.0-36.0) Seconds Sodium (136-145) mEq/L Potassium (3.5-5.1) mEq/L Chloride (98-107) mEq/L Carbon Dioxide (23-29) mEq/L BUN (8-23) mg/dL Creatinine (0.60-1.20) mg/dL Est GFR ( Amer) (> 60) Est GFR (Non-Af Amer) (> 60) BUN/Creatinine Ratio (6-26) Glucose (70-105) mg/dL Calculated Osmolality (280-300) Lactic Acid (0.5-2.2) mmol/L Calcium (8.6-10.3) mg/dL Magnesium (1.6-2.6) mg/dL Troponin I (< 0.04) ng/mL B-Natriuretic Peptide 262 H (Less than 100) pg/mL TSH (0.340-5.600) mcIU/mL Random Cortisol mcg/dl Urine Color (Yellow) Urine Clarity (Clear) Urine pH (5.0-8.0) pH Units Ur Specific [place] (1.010-1.025) Urine Protein (Neg-Trace) mg/dL Urine Glucose (UA) (Normal) mg/dL Urine Ketones (Negative) mg/dL Urine Blood (Negative) Urine Nitrite (Negative) Urine Bilirubin (Negative) Urine Urobilinogen (Normal) mg/dL Ur Leukocyte Esterase (Negative) Urine Microscopic RBC (0-3) per hpf Urine Microscopic WBC (0-3) per hpf Ur Squamous Epith Cells (None-Few) per lpf Urine Bacteria (None-Few) per hpf Blood Type O POSITIVE Antibody Screen NEGATIVE 03/23/18 03/23/18 03/23/18 Range/Units 13:55 13:55 14:08 WBC 9.1 (4.3-11.1) K/mcL RBC 4.01 (3.82-4.97) M/mcL Hgb 10.8 L (11.5-15.4) g/dL Hct 34.2 L (35.3-44.9) % MCV 85.3 (83.0-100.0) fL MCH 26.9 L (28.0-33.3) pg MCHC 31.6 (31.6-35.5) g/dL RDW 14.0 (11.5-14.5) % Plt Count 281 (140-400) K/mcL MPV 10.5 (9.4-12.4) fL Immature Gran % 0.3 (0-4) % Seg Neutrophils % 66.8 % Lymphocytes % 21.7 % Monocytes % 8.8 % Eosinophils % 2.1 % Basophils % 0.3 % Neutrophils # 6.1 (1.6-8.9) K/mcL Lymphocytes # 2.0 (0.6-4.6) K/mcL Monocytes # 0.8 (0.0-1.3) K/mcL Eosinophils # 0.2 (0.0-0.6) K/mcL Basophils # 0.0 (0.0-0.2) K/mcL PT (9.4-12.1) Seconds INR APTT (26.0-36.0) Seconds Sodium 139 (136-145) mEq/L Potassium 4.9 (3.5-5.1) mEq/L Chloride 105 (98-107) mEq/L Carbon Dioxide 25 (23-29) mEq/L BUN 19 (8-23) mg/dL Creatinine 1.01 (0.60-1.20) mg/dL Est GFR ( Amer) > 60 (> 60) Est GFR (Non-Af Amer) 55 L (> 60) BUN/Creatinine Ratio 19 (6-26) Glucose 147 H (70-105) mg/dL Calculated Osmolality 293 (280-300) Lactic Acid 2.3 H (0.5-2.2) mmol/L Calcium 9.8 (8.6-10.3) mg/dL Magnesium 1.5 L (1.6-2.6) mg/dL Troponin I < 0.03 (< 0.04) ng/mL B-Natriuretic Peptide (Less than 100) pg/mL TSH 0.692 (0.340-5.600) mcIU/mL Random Cortisol 17.2 mcg/dl Urine Color (Yellow) Urine Clarity (Clear) Urine pH (5.0-8.0) pH Units Ur Specific [place] (1.010-1.025) Urine Protein (Neg-Trace) mg/dL Urine Glucose (UA) (Normal) mg/dL Urine Ketones (Negative) mg/dL Urine Blood (Negative) Urine Nitrite (Negative) Urine Bilirubin (Negative) Urine Urobilinogen (Normal) mg/dL Ur Leukocyte Esterase (Negative) Urine Microscopic RBC (0-3) per hpf Urine Microscopic WBC (0-3) per hpf Ur Squamous Epith Cells (None-Few) per lpf Urine Bacteria (None-Few) per hpf Blood Type Antibody Screen 03/23/18 Range/Units 15:43 WBC (4.3-11.1) K/mcL RBC (3.82-4.97) M/mcL Hgb (11.5-15.4) g/dL Hct (35.3-44.9) % MCV (83.0-100.0) fL MCH (28.0-33.3) pg MCHC (31.6-35.5) g/dL RDW (11.5-14.5) % Plt Count (140-400) K/mcL MPV (9.4-12.4) fL Immature Gran % (0-4) % Seg Neutrophils % % Lymphocytes % % Monocytes % % Eosinophils % % Basophils % % Neutrophils # (1.6-8.9) K/mcL Lymphocytes # (0.6-4.6) K/mcL Monocytes # (0.0-1.3) K/mcL Eosinophils # (0.0-0.6) K/mcL Basophils # (0.0-0.2) K/mcL PT (9.4-12.1) Seconds INR APTT (26.0-36.0) Seconds Sodium (136-145) mEq/L Potassium (3.5-5.1) mEq/L Chloride (98-107) mEq/L Carbon Dioxide (23-29) mEq/L BUN (8-23) mg/dL Creatinine (0.60-1.20) mg/dL Est GFR ( Amer) (> 60) Est GFR (Non-Af Amer) (> 60) BUN/Creatinine Ratio (6-26) Glucose (70-105) mg/dL Calculated Osmolality (280-300) Lactic Acid (0.5-2.2) mmol/L Calcium (8.6-10.3) mg/dL Magnesium (1.6-2.6) mg/dL Troponin I (< 0.04) ng/mL B-Natriuretic Peptide (Less than 100) pg/mL TSH (0.340-5.600) mcIU/mL Random Cortisol mcg/dl Urine Color Dark Yellow (Yellow) Urine Clarity Cloudy A (Clear) Urine pH 6.0 (5.0-8.0) pH Units Ur Specific [place] > 1.030 H (1.010-1.025) Urine Protein 100 H (Neg-Trace) mg/dL Urine Glucose (UA) Normal (Normal) mg/dL Urine Ketones Trace H (Negative) mg/dL Urine Blood Negative (Negative) Urine Nitrite Negative (Negative) Urine Bilirubin Small H (Negative) Urine Urobilinogen Normal (Normal) mg/dL Ur Leukocyte Esterase Small H (Negative) Urine Microscopic RBC 0-3 (0-3) per hpf Urine Microscopic WBC 0-3 (0-3) per hpf Ur Squamous Epith Cells Few (None-Few) per lpf Urine Bacteria Few (None-Few) per hpf Blood Type Antibody Screen Attestation Statement - Attestation Attestation: I examined this patient and my medical decision-making was reviewed with the Resident Physician. I agree with the documented findings, disposition and treatment plan as described except to the extent set forth below. 68 year old femeal presnet to the eD with complants of dizzziness and hypotesnion. It appears she presented simliary in jul 2017 and had thyroid and adrenal evaluation at that time she was disagnosed with low magnesium and nonspecific hypotension which was fluid responseive. It appears tody ahs is prseneting julieta mccartneyh she has a lactic acid of 2.3 , we will botain CTA chest and abdomena and then admit to medicine
--- NOTE | 2018-03-23 17:58 | Internal Med History&Physical ---
Date of Encounter: 03/23/18 Time of Encounter: 17:58 Internal Medicine - H&P: HPI Chief complaint: dizzy History of present illness: Ms. Birmingham is a 68 year old female with a history of hypertension, diabetes, COPD , A. fib on Xarelto presents for evaluation of low blood pressure, dizziness and shortness of breath. Patient states she has been increasingly dyspneic and short of breath over the last few days. Patient states that she can only ambulate a few feet before feeling of lightheadedness and "blacking out". Patient denies any syncope. Patient states symptoms worse with exertion. Patient has noted some chest pain. Patient had a recent adjustment in her blood pressure medication with reduction of lisinopril. CT scan of the chest, pelvis and abodomen were noted and with no abnormalities that could justify low blood pressure. Past Med Surg Social Fam HX - Past Medical History Medical history: asthma, coronary artery disease, diabetes, glaucoma, hypertension, other Additional medical history: diverticulitis Psychiatric history: no psych history - Past Surgical History Surgical History: appendectomy, cataract, hysterectomy Additional surgical history: [place] cataract,right knee replacement, triple bypass - Social History Smoking Status: Never smoker Smokeless Tobacco Status: No Alcohol use: none Drug use: none - Family History Mother Living Status: Hx Family Cancer: Yes Son Living Status: Still Living Hx Family Endocrine Disorder: Yes (Diabetes) Father Living Status: Hx Family Cancer: Yes Hx Family Endocrine Disorder: Yes (Diabetes) Internal Medicine - H&P: Meds Albuterol Neb [Proventil Neb] 3 ml IH TID 06/26/16 [History] Albuterol Sulfate [Ventolin Hfa] 2 puff IH Q4H PRN 06/26/16 [History] Gabapentin [Neurontin] 1,200 mg PO TID 06/26/16 [History] GlipiZIDE [Glipizide Xl] 10 mg PO BID 06/26/16 [History] Latanoprost [Xalatan] 1 drop OP QPM 06/26/16 [History] Linagliptin [Tradjenta] 5 mg PO DAILY 06/26/16 [History] Loratadine [Claritin] 10 mg PO DAILY 06/26/16 [History] Omeprazole [PriLOSEC] 20 mg PO BID 10/10/16 [History] Oxycodone HCl/Acetaminophen [Percocet 7.5-325 mg Tablet] 1 tab PO Q6H PRN [History] Theophylline Anhydrous [Theophylline] 400 mg PO BID 06/26/16 [History] Aspirin Enteric Coated [Aspirin EC] 81 mg PO DAILY #60 tablet. 07/06/16 [Rx] Atorvastatin [Lipitor] 40 mg PO HS #30 tablet 07/06/16 [Rx] Fluticasone Propionate Nasal [Flonase] 50 mcg NS DAILY PRN 05/15/17 [History] Iron Polysaccharide Complex [Pro Fe] 180 mg PO DAILY 05/15/17 [History] Ondansetron HCl [Zofran] 4 mg PO Q6H PRN 05/15/17 [History] Rivaroxaban [Xarelto] 20 mg PO DAILY 05/15/17 [History] Magnesium Oxide [Mag-Ox] 400 mg PO BID #60 tablet 07/31/17 [Rx] Metformin HCl [Glucophage] 1,000 mg PO BID 30 Days tablet 07/31/17 [Rx] Carvedilol [Coreg] 6.25 mg PO BID 03/23/18 [History] Lisinopril [Zestril] 5 mg PO DAILY 03/23/18 [History] 3 Allergy/AdvReac Type Severity Reaction Status Date / Time methylprednisolone AdvReac Diarrhea Verified 03/12/17 17:29 Penicillins AdvReac Swelling Verified 07/26/17 09:44 of Lip/Tongue/Throat rofecoxib AdvReac Nausea Verified 03/12/17 17:29 All Systems PM: A 10-system review of systems was performed and is negative for pertinent findings except as documented above in the HPI. - Constitutional Constitutional: fatigue, no chills, no fever(s), no night sweats - Cardiovascular Cardiovascular ROS IM: lightheadedness, no chest pain, no diaphoresis, no dyspnea, no palpitations, no syncope - Respiratory Respiratory: no cough, no dyspnea, no wheezing, no excessive phlegm production - Gastrointestinal Gastrointestinal: no abdominal pain, no diarrhea, no hematemesis, no hematochezia, no melena, no nausea, no vomiting - Neurological Neurological ROS: no confusion, no convulsions, no focal weakness, no numbness, no tingling, no tremor(s) - Constitutional Vitals: Temp Pulse Resp BP Pulse Ox 98.5 F 95 18 126/72 95 03/23/18 14:00 03/23/18 17:29 03/23/18 17:29 03/23/18 17:29 03/23/18 17:29 General appearance: Present: A&O X 3 - Head Head exam: Present: atraumatic, normocephalic - Respiratory Respiratory exam: Present: CTAB. Absent: accessory muscle use, rales, rhonchi, wheezes - Cardiovascular Cardiovascular exam: Present: RRR, +S1, +S2. Absent: diastolic murmur, gallop, rubs, systolic murmur - GI/Abdominal GI/Abdominal exam: Present: normal bowel sounds, soft, no peritoneal signs. Absent: distended, tenderness - Extremities Exam Extremities exam: Present: warm, radial pulses palpable and symmetrical. Absent : calf tenderness, cyanotic, pedal edema Internal Med - H&P Results - Labs CBC & Chem 7: 03/24/18 05:08 03/24/18 05:08 Labs: Short CBC 03/23/18 Range/Units 13:55 WBC 9.1 (4.3-11.1) K/mcL Hgb 10.8 L (11.5-15.4) g/dL Hct 34.2 L (35.3-44.9) % Plt Count 281 (140-400) K/mcL Neutrophils # 6.1 (1.6-8.9) K/mcL BMP 03/23/18 13:55 Sodium 139 Potassium 4.9 Chloride 105 Carbon Dioxide 25 BUN 19 Creatinine 1.01 Glucose 147 H Calcium 9.8 Cardiac Enzymes 03/23/18 Range/Units 13:55 Troponin I < 0.03 (< 0.04) ng/mL Urine 03/23/18 Range/Units 15:43 Urine Color Dark Yellow (Yellow) Urine Clarity Cloudy A (Clear) Urine pH 6.0 (5.0-8.0) pH Units Ur Specific [place] > 1.030 H (1.010-1.025) Urine Protein 100 H (Neg-Trace) mg/dL Urine Glucose (UA) Normal (Normal) mg/dL - Impressions ITS Impressions Chest X-Ray 03/23/18 13:56 IMPRESSION: Stable exam without acute cardiopulmonary findings. D/ / Ariana Snell MD / Ariana Snell MD Interpreting Provider: Ariana Snell MD Abdomen/Pelvis CT 03/23/18 16:05 IMPRESSION: 1. No acute abnormality in the chest, abdomen, or pelvis. 2. Status post CABG. 3. 6 mm nodule in the left lung base unchanged from 06/13/2016. 4 mm nodule in the right middle lobe. See recommendations below. 4. Enlarged heterogeneous partially visualized thyroid gland. Recommend further evaluation with thyroid ultrasound. 5. Colonic diverticulosis. 6. Status post hysterectomy. RECOMMENDATIONS: Fleischner Society guidelines for follow-up and management of incidentally detected pulmonary nodules: Multiple Solid Nodules: Nodule size equals 6-8 mm In a low-risk patient, CT at 3-6 months, then consider CT at 18-24 months. In a high-risk patient, CT at 3-6 months, then CT at 18-24 months. - Low risk patients include individuals with minimal or absent history of smoking and other known risk factors. - High risk patients include individuals with a history or smoking or known risk factors. Radiology 2017 http://pubs.rsna.org/doi/full/10.1148/radiol.[email or web address] D/ / Sarkis Lomas MD / Sarkis Lomas MD Interpreting Provider: Sarkis Lomas MD Chest CT 03/23/18 16:05 IMPRESSION: 1. No acute abnormality in the chest, abdomen, or pelvis. 2. Status post CABG. 3. 6 mm nodule in the left lung base unchanged from 06/13/2016. 4 mm nodule in the right middle lobe. See recommendations below. 4. Enlarged heterogeneous partially visualized thyroid gland. Recommend further evaluation with thyroid ultrasound. 5. Colonic diverticulosis. 6. Status post hysterectomy. RECOMMENDATIONS: Fleischner Society guidelines for follow-up and management of incidentally detected pulmonary nodules: Multiple Solid Nodules: Nodule size equals 6-8 mm In a low-risk patient, CT at 3-6 months, then consider CT at 18-24 months. In a high-risk patient, CT at 3-6 months, then CT at 18-24 months. - Low risk patients include individuals with minimal or absent history of smoking and other known risk factors. - High risk patients include individuals with a history or smoking or known risk factors. Radiology 2017 http://pubs.rsna.org/doi/full/10.1148/radiol.5993813435 D/ / Sarkis Lomas MD / Sarkis Lomas MD Interpreting Provider: Sarkis Lomas MD - Assessment and plan (1) Hypotension Current Visit: Yes Status: Acute Assessment and plan: - Patient was tachycardic and hypotensive. - she has a history of hypotension the past with workup that included thyroid and adrenal evaluation at that time she was disagnosed with low magnesium and nonspecific hypotension which was fluid responseive. - She has a similar presentation today and lactic acid of 2.3 which raising the concern for infection and prompt a broad-spectrum antibiotics to be started - We will cont ABs , cont to monitor Bl pressure and repeat workup to identify a possible source of infection. - Cont antihypertensive with holding parameter. Qualifiers: Hypotension type: unspecified hypotension type Qualified Code(s): I95.9 - Hypotension, unspecified (2) Coronary artery disease Current Visit: No Status: Acute Qualifiers: Coronary Disease-Associated Artery/Lesion type: [place] artery [place] vs. transplanted heart: [place] heart Associated angina: without angina Qualified Code(s): I25.10 - Atherosclerotic heart disease of [place] coronary artery without angina pectoris (3) Anemia Current Visit: Yes Status: Acute Qualifiers: Anemia type: unspecified type Qualified Code(s): D64.9 - Anemia, unspecified (4) Diabetes Current Visit: Yes Status: Acute (5) DVT prophylaxis Current Visit: No Status: Acute - Time Spent With Patient Total time spent is greater than 50% in coordination of care (as documented) at patient's floor/unit and/or counseling patient:
[2018-03-23] MEDS ORDERED: Naloxone 0.4 MG/ML INJ IVP PRN (18:12)
[2018-03-23] MEDS ORDERED: *HR* HYDROcodone/Acet 5/325 mg TABLET PO PRN (18:12)
[2018-03-23] MEDS ORDERED: Acetaminophen 325 MG TABLET PO PRN (18:12)
[2018-03-23] MEDS ORDERED: Fluticasone Propionate Nasal 50 MCG/SPRAY BOTTLE NS PRN (18:28)
[2018-03-23] MEDS ORDERED: Ondansetron ODT 4 MG TAB.RAPDIS PO PRN (18:28)
[2018-03-23] MEDS ORDERED: *HR* Dextrose 50 % in Water (Syg) 50 ML SYRINGE IVP PRN (18:34)
[2018-03-23] MEDS ORDERED: Dextrose Gel 15 GM/37.5 ML TUBE PO PRN ×2 (18:34)
[2018-03-23] MEDS ORDERED: D5% in Water 1,000 ML IVC PRN (18:34)
[2018-03-23] MEDS ORDERED: Vancomycin (wt based) 1,000 MG VIAL IVPB SCH (19:00)
[2018-03-23 19:26] LABS: INR 1.2; Prothrombin Time 13.8 Seconds (9.4-12.1)
[2018-03-23 19:29] LABS: Activated Partial Thrombo Time 33.7 Seconds (26.0-36.0)
[2018-03-23] MEDS: Albuterol 2.5 MG/3 ML NEBULIZER IH SCH (20:33)
[2018-03-23] MEDS: *HR* GlipiZIDE XL (24 HR) 10 MG TABLET PO SCH (22:46)
[2018-03-23] MEDS: Gabapentin 400 MG CAPSULE PO SCH (22:46)
[2018-03-23] MEDS: Magnesium Oxide 400 MG TABLET PO SCH (22:46)
[2018-03-23] MEDS: Insulin LISPRO 300 UNITS/3 ML VIAL SQ SCH (22:48)
[2018-03-23] MEDS: *HR* Metformin 500 MG TABLET PO SCH (22:52)
[2018-03-24 05:36] LABS: Hematocrit 32.2 % (35.3-44.9); Mean Corpuscular HGB Conc 31.1 g/dL (31.6-35.5); Mean Corpuscular Hemoglobin 26.1 pg (28.0-33.3); Mean Corpuscular Volume 84.1 fL (83.0-100.0); Mean Platelet Volume 10.6 fL (9.4-12.4); Platelet Count 224 K/mcL (140-400); Red Blood Count 3.83 M/mcL (3.82-4.97)
[2018-03-24 05:56] LABS: Alanine Aminotransferase 9 Units/L (7-52); Albumin 3.7 g/dL (3.5-5.7); Albumin/Globulin Ratio 1.7 (1.1-2.2); Alkaline Phosphatase 62 Units/L (34-104); Aspartate Amino Transferase 9 Units/L (13-39); BUN/Creatinine Ratio 28 (6-26); Bilirubin,Total 0.3 mg/dL (0.3-1.0); Blood Urea Nitrogen 21 mg/dL (8-23); Calcium 9.3 mg/dL (8.6-10.3); Carbon Dioxide 22 mEq/L (23-29); Chloride 108 mEq/L (98-107); Chol/HDL Ratio 2.5 (0-4.9); Cholesterol 117 mg/dL (< 200); Globulin 2.2 g/dL (2.4-3.5); Glucose 232 mg/dL (70-105); HDL Cholesterol 46 mg/dL (40-59); LDL Cholesterol,Calculated 58 mg/dL (0-99); Magnesium 1.5 mg/dL (1.6-2.6); Osmolality,Calculated 296 (280-300); Phosphorous 3.5 mg/dL (2.7-4.5); Potassium 4.3 mEq/L (3.5-5.1); Sodium 138 mEq/L (136-145); Total Protein 5.9 g/dL (6.4-8.9); Triglycerides 64 mg/dL (< 150); eGFR For African Americans > 60 (> 60); eGFR For Non-African Americans > 60 (> 60)
[2018-03-24] MEDS: Albuterol 2.5 MG/3 ML NEBULIZER IH SCH ×3 (06:06→16:00)
[2018-03-24] MEDS: 0.9 % Sodium Chloride 1,000 ML IVC SCH ×2 (07:42→16:33)
[2018-03-24] MEDS: (Linagliptin [Tradjenta] 5 MG) PO SCH (07:59)
[2018-03-24] MEDS: *HR* Metformin 500 MG TABLET PO SCH ×2 (08:11→22:01)
[2018-03-24] MEDS: Aspirin Enteric Coated 81 MG Tablet PO SCH (08:12)
[2018-03-24] MEDS: Gabapentin 400 MG CAPSULE PO SCH ×3 (08:12→22:01)
[2018-03-24] MEDS: Iron Polysaccharide Complex 150 MG CAPSULE PO SCH (08:12)
[2018-03-24] MEDS: Loratadine 10 MG TABLET PO SCH (08:12)
[2018-03-24] MEDS: Magnesium Oxide 400 MG TABLET PO SCH ×2 (08:12→22:02)
[2018-03-24] MEDS: *HR* Rivaroxaban 10 MG TABLET PO SCH (08:12)
[2018-03-24] MEDS: *HR* GlipiZIDE XL (24 HR) 10 MG TABLET PO SCH ×2 (08:12→22:01)
[2018-03-24] MEDS: Insulin LISPRO 300 UNITS/3 ML VIAL SQ SCH ×3 (08:13→16:42)
[2018-03-24] MEDS ORDERED: 0.9 % Sodium Chloride 1,000 ML ONE (16:22)
--- NOTE | 2018-03-24 17:27 | Internal Med Progress Note ---
Date of Encounter: 03/24/18 Time of Encounter: 17:22 - Assessment and plan (1) Hypotension Current Visit: Yes Status: Acute Assessment and plan: hypotension resolved with IVF, lisaley from dehydration, pending culture infection work up including, CXR, UA, BC, sofar negative. CT chest and abdomen showed . No acute abnormality in the chest, abdomen, or pelvis.. Status post CABG. . 6 mm nodule in the left lung base unchanged from 06/13/2016. 4 mm nodule in the right middle lobe. See recommendations below. . Enlarged heterogeneous partially visualized thyroid gland. Recommend further evaluation with thyroid ultrasound. . Qualifiers: Hypotension type: unspecified hypotension type Qualified Code(s): I95.9 - Hypotension, unspecified (2) Atrial fibrillation with rapid ventricular response Current Visit: Yes Status: Chronic Assessment and plan: atrail fib with RVR, HR is around 100-120, will consult cardiology for better HR control. current on coreg 6.25, has issues for hypotension. she has on and off palitiation hypotension and dizziness. continue xarelto (3) Hyperlipidemia associated with type 2 diabetes mellitus Current Visit: Yes Status: Chronic (4) Multiple thyroid nodules Current Visit: No Status: Chronic Assessment and plan: follow up with PCP, normal TSH (5) Asthma Current Visit: No Status: Chronic Assessment and plan: stable no wheezing Qualifiers: Asthma severity: mild intermittent Asthma complication type: uncomplicated Qualified Code(s): J45.20 - Mild intermittent asthma, uncomplicated (6) Hypomagnesemia Current Visit: No Status: Acute Assessment and plan: IV replaced (7) Dehydration Current Visit: Yes Status: Acute Assessment and plan: resolved with IVF (8) Coronary artery disease Current Visit: Yes Status: Chronic Assessment and plan: CAD s/p CABG in 06/2016 contineu ASA, statin BB Qualifiers: Coronary Disease-Associated Artery/Lesion type: [place] artery [place] vs. transplanted heart: [place] heart Associated angina: without angina Qualified Code(s): I25.10 - Atherosclerotic heart disease of [place] coronary artery without angina pectoris (9) Morbid obesity Current Visit: Yes Status: Acute - Time Spent With Patient Total time spent is greater than 50% in coordination of care (as documented) at patient's floor/unit and/or counseling patient: 25 - 35 minutes - Subjective Interval history: Ms. Birmingham is a 68 year old female with a history of hypertension, diabetes, COPD , A. fib on Xarelto presents for evaluation of low blood pressure, dizziness and shortness of breath. Patient states she has been increasingly dyspneic and short of breath over the last few days. Patient states that she can only ambulate a few feet before feeling of lightheadedness and "blacking out". Patient denies any syncope. Patient states symptoms worse with exertion. Patient has noted some chest pain. Patient had a recent adjustment in her blood pressure medication with reduction of lisinopril. CT scan of the chest, pelvis and abodomen were noted and with no abnormalities that could justify low blood pressure. Negative CXR, UA and normal WBC, normal TSH and cortisol. Her BP improved with IVF she tolerated Coreg will hold lisinopril contineu ATB for now, if culture continues to be negative, then d/c ATB. will check TTE - Constitutional Vitals: Temp Pulse Resp BP Pulse Ox 98.7 F 106 18 128/72 97 03/24/18 16:07 03/24/18 16:07 03/24/18 16:07 03/24/18 16:07 03/24/18 16:07 General appearance: Present: A&O X 3, obese Exam: CONSTITUTIONAL: patient appears as an age appropriate female in no acute distress. EYES Clear sclerae, bilateral pupils are equal, reactive to light. EMOI. RESPIRATORY: No accessory muscle use, bilateral clear to auscultation, no wheezing, no crackles/rales. CARDIOVASCULAR: Regular heart rate, normal S1 and S2, no murmurs GASTROINTESTINAL: bowel sounds present, soft, no tenderness. MUSCULOSKELETAL: Joints in normal range of motion, no clubbing, no edema, no cyanosis. Bilateral peripheral pulses 2+. NEUROLOGIC: CN II to XII are grossly intact, no focal neurological deficit. Internal Medicine: Result - Labs CBC & Chem 7: 03/24/18 05:08 03/24/18 05:08 Labs: Short CBC 03/24/18 Range/Units 05:08 WBC 8.2 (4.3-11.1) K/mcL Hgb 10.0 L (11.5-15.4) g/dL Hct 32.2 L (35.3-44.9) % Plt Count 224 (140-400) K/mcL BMP 03/24/18 05:08 Sodium 138 Potassium 4.3 Chloride 108 H Carbon Dioxide 22 L BUN 21 Creatinine 0.74 Glucose 232 H Calcium 9.3 Liver Function 03/24/18 Range/Units 05:08 Total Bilirubin 0.3 (0.3-1.0) mg/dL AST 9 L (13-39) Units/L ALT 9 (7-52) Units/L Alkaline Phosphatase 62 (34-104) Units/L Albumin 3.7 (3.5-5.7) g/dL - ABG Interpretation ABG results: PT/INR, D-dimer PT 13.8 Seconds (9.4-12.1) H 03/23/18 18:47 Consult Discharge Plan - Plan Referrals: Juaquin Nelson MD [Primary Care Provider] -
[2018-03-25] MEDS: Albuterol 2.5 MG/3 ML NEBULIZER IH SCH ×2 (03:38→10:32)
[2018-03-25 04:29] LABS: BUN/Creatinine Ratio 28 (6-26); Blood Urea Nitrogen 23 mg/dL (8-23); Calcium 9.3 mg/dL (8.6-10.3); Carbon Dioxide 23 mEq/L (23-29); Chloride 113 mEq/L (98-107); Glucose 83 mg/dL (70-105); Magnesium 1.7 mg/dL (1.6-2.6); Osmolality,Calculated 297 (280-300); Potassium 4.2 mEq/L (3.5-5.1); Sodium 142 mEq/L (136-145); eGFR For African Americans > 60 (> 60); eGFR For Non-African Americans > 60 (> 60)
[2018-03-25] MEDS: Latanoprost 2.5 ML BOTTLE BOTH EYES SCH ×2 (06:44→22:02)
[2018-03-25] MEDS: Insulin LISPRO 300 UNITS/3 ML VIAL SQ SCH ×4 (06:45→16:30)
[2018-03-25] MEDS: *HR* Metformin 500 MG TABLET PO SCH ×2 (08:00→21:56)
[2018-03-25] MEDS: Gabapentin 400 MG CAPSULE PO SCH ×3 (08:01→22:01)
[2018-03-25] MEDS: Aspirin Enteric Coated 81 MG Tablet PO SCH (08:01)
[2018-03-25] MEDS: *HR* Rivaroxaban 10 MG TABLET PO SCH (08:02)
[2018-03-25] MEDS: Iron Polysaccharide Complex 150 MG CAPSULE PO SCH (08:02)
[2018-03-25] MEDS: *HR* GlipiZIDE XL (24 HR) 10 MG TABLET PO SCH ×2 (08:02→21:56)
[2018-03-25] MEDS: Loratadine 10 MG TABLET PO SCH (08:02)
[2018-03-25] MEDS: Magnesium Oxide 400 MG TABLET PO SCH ×2 (08:02→22:01)
[2018-03-25] MEDS: (Linagliptin [Tradjenta] 5 MG) PO SCH (08:04)
[2018-03-25] MEDS ORDERED: Levofloxacin 750 MG/150 ML 750 MG/150 ML BAG IVPB SCH (09:00)
--- NOTE | 2018-03-25 11:48 | Cardiology Consult Note ---
<Kirill Cadet R - Last Filed: 03/25/18 12:24> Date of Encounter: 03/25/18 Time of Encounter: 11:35 Assessment and Plan (1) PAF (paroxysmal atrial fibrillation) Current Visit: Yes Status: Acute Known hx of PAF diagnosed s/p CABG in 2016. On Coreg 6.25mg BID for rate control and anticoagulated on Xarelto. Historically , BP unable to tolerate increased Coreg doses. Presented for CC of dizziness, lightheadedness, hypotension. A-Fib, rate 104 on admission EKG. Repeat EKG reviewed with Dr. Christiano Pitts, appears to be an atrial tachycardia HR 120s. Lisinopril was stopped on admission. BP has improved and has tolerated AM dose of Coreg 6.25mg. Will increase Coreg to 12.5mg BID. Check limited TTE to re-evaluate EF. Continue to follow. Anticoagulated on Xarelto for PAF. (2) Coronary artery disease Current Visit: Yes Status: Chronic S/P CABG in 2016. Continue ASA, Statin, BB. Denies chest pain. Troponin negative x 1. Qualifiers: Coronary Disease-Associated Artery/Lesion type: [place] artery [place] vs. transplanted heart: [place] heart Associated angina: without angina Qualified Code(s): I25.10 - Atherosclerotic heart disease of [place] coronary artery without angina pectoris Discussion w patient/family: The assessment and plan as outlined above was discussed with the patient and/or family members who expressed understanding and agreement. All questions were answered. Thank you for involving us in the care of your patient. Please call with any questions. History of Present Illness Consult date: 03/25/18 Consult reason: PAF Chief complaint: dizziness History of present illness: Ms. Birmingham is a 68 year old female with PMH of hypertension, diabetes, COPD, CAD s/p CABG in 2016, PAF/Fl on Xarelto presents for evaluation of low blood pressure, dizziness and dyspnea. Pt states she noticed more wheezing than usual , on exertion over the past few days. She has been feeling lightheaded and a sensation of things "going black", but denies actual loss of consciousness or syncope. Pt denies chest pain. Pt found to be in A-Fib on presentation, HR 104. She since converted back to SR, but has sinus tachycardia now. Troponins negative x 1. BP has improved--reports now feeling better. She does not know when she is in A-Fib, but reports that currently she can feel her heart beating fast---sinus. Prior CV testing: eCAT 10/13/17: BASELINE RHYTHM NORMAL SINUS. AFL WITH RVR NOTED AT INITIATION OF MONITOR. TTE 07/2017 EF 65%. Mild cLVH, mildly dilated LA, trace MR, mild TR. Past Med Surg Social Fam HX - Past Medical History Medical history: asthma, atrial fibrillation, coronary artery disease, diabetes , glaucoma, hypertension, other Additional medical history: diverticulitis Psychiatric history: no psych history - Past Surgical History Surgical History: appendectomy, cataract, hysterectomy Additional surgical history: [place] cataract,right knee replacement, triple bypass - Social History Smoking Status: Never smoker Smokeless Tobacco Status: No Alcohol use: none Drug use: none - Family History Mother Living Status: Hx Family Cancer: Yes Son Living Status: Still Living Hx Family Endocrine Disorder: Yes (Diabetes) Father Living Status: Hx Family Cancer: Yes Hx Family Endocrine Disorder: Yes (Diabetes) Medications and Allergies Albuterol Neb [Proventil Neb] 3 ml IH TID 06/26/16 [History] Albuterol Sulfate [Ventolin Hfa] 2 puff IH Q4H PRN 06/26/16 [History] Gabapentin [Neurontin] 1,200 mg PO TID 06/26/16 [History] GlipiZIDE [Glipizide Xl] 10 mg PO BID 06/26/16 [History] Latanoprost [Xalatan] 1 drop OP QPM 06/26/16 [History] Linagliptin [Tradjenta] 5 mg PO DAILY 06/26/16 [History] Loratadine [Claritin] 10 mg PO DAILY 06/26/16 [History] Omeprazole [PriLOSEC] 20 mg PO BID 06/26/16 [History] Oxycodone HCl/Acetaminophen [Percocet 7.5-325 mg Tablet] 1 tab PO Q6H PRN [History] Theophylline Anhydrous [Theophylline] 400 mg PO BID 06/26/16 [History] Aspirin Enteric Coated [Aspirin EC] 81 mg PO DAILY #60 tablet. 07/06/16 [Rx] Atorvastatin [Lipitor] 40 mg PO HS #30 tablet 07/06/16 [Rx] Fluticasone Propionate Nasal [Flonase] 50 mcg NS DAILY PRN 05/15/17 [History] Iron Polysaccharide Complex [Pro Fe] 180 mg PO DAILY 05/15/17 [History] Ondansetron HCl [Zofran] 4 mg PO Q6H PRN 05/15/17 [History] Rivaroxaban [Xarelto] 20 mg PO DAILY 05/15/17 [History] Magnesium Oxide [Mag-Ox] 400 mg PO BID #60 tablet 07/31/17 [Rx] Metformin HCl [Glucophage] 1,000 mg PO BID 30 Days tablet 07/31/17 [Rx] Carvedilol [Coreg] 6.25 mg PO BID 03/23/18 [History] Lisinopril [Zestril] 5 mg PO DAILY 03/23/18 [History] 3 Allergy/AdvReac Type Severity Reaction Status Date / Time methylprednisolone AdvReac Diarrhea Verified 03/12/17 17:29 Penicillins AdvReac Swelling Verified 07/26/17 09:44 of Lip/Tongue/Throat rofecoxib AdvReac Nausea Verified 03/12/17 17:29 All Systems Review: The remainder of the systems were reviewed and are negative - Cardiovascular Cardiovascular: as per HPI, dyspnea on exertion, lightheadedness, palpitations - Respiratory Respiratory: wheezing Physical Examination Vital Signs, Last 4 Hours Pulse 03/25/18 08:00 114 Vital Signs Temp Pulse Resp BP Pulse Ox 03/25/18 11:40 97.7 F 126 20 116/71 98 03/25/18 08:00 114 03/25/18 07:33 97.9 F 111 18 127/92 95 03/25/18 03:57 98.1 F 122 18 124/93 97 03/24/18 23:53 97.8 F 95 20 125/90 97 03/24/18 19:18 98.1 F 101 22 138/88 98 03/24/18 16:07 98.7 F 106 18 128/72 97 Intake and Output 03/24/18 03/25/18 03/25/18 23:59 07:59 15:59 Intake Total 1744 / 1744 240 / 240 Output Total 1600 / 1600 1450 / 1450 Balance 144 / 144 -1210 / -1210 Intake: IV Fluids 1104 / 1104 0.9 % Sodium Chloride 1,000 ML 1000 / 1000 @ 125 mls/hr IVC .Q8H [facility] Rx#: [id number] Magnesium Sulfate 2 GM In 0.9 % 104 / 104 Sodium Chloride 100 ML @ 104 mls/hr IVPB ONCE ONE Rx#: [id number] Oral 240 / 240 240 / 240 Free Water 400 / 400 Output: Urine 1600 / 1600 1450 / 1450 Other: Meal Dinner Breakfast Percent of Meal Consumed 90% 100% Weight 91.9 kg Blood Glucose* 95 61 72 Patient Weight 03/25/18 23:59 Weight 91.9 kg General: Conversant, No Apparent Distress HEENT: Atraumatic, Normocephaly, Mucus Membranes Moist Neck: No JVD, Normal carotid pulses Cardiac: Reg Rate and Rhythm, Normal S1 and S2, No Murmur Lungs: Normal Breath Sounds, No Wheeze, Rales, Rhonchi Neuro: Alert and responsive, No focal deficits noted Abdomen: Soft, Non-Tender Skin: No rashes noted on visualized skin Musculoskeletal: No Chest Wall Tenderness Extremities: No Clubbing, No Cyanosis, No Edema, Normal Pulses Results 03/24/18 05:08 03/25/18 03:50 Lab Results 03/25/18 03:50 Sodium 142 Potassium 4.2 Chloride 113 H Carbon Dioxide 23 BUN 23 Creatinine 0.82 Glucose 83 Calcium 9.3 Magnesium 1.7 BMP 03/25/18 Range/Units 03:50 Sodium 142 (136-145) mEq/L Potassium 4.2 (3.5-5.1) mEq/L Chloride 113 H (98-107) mEq/L Carbon Dioxide 23 (23-29) mEq/L BUN 23 (8-23) mg/dL Creatinine 0.82 (0.60-1.20) mg/dL Glucose 83 (70-105) mg/dL Calcium 9.3 (8.6-10.3) mg/dL Active Medications Acetaminophen (Tylenol) 650 mg PO Q6HR PRN PRN Reason: Mild Pain/Fever Stop: 09/22/18 18:13 Hydrocodone Bitart/Acetaminophen ([place] 5-325 Mg) 1 tab PO Q6HR PRN PRN Reason: Moderate Pain Stop: 09/22/18 18:13 Last Admin: 03/23/18 22:47 Dose: 1 tab Albuterol Sulfate (Proventil Neb) 2.5 mg IH TIDR JERILYN PRN Reason: Protocol Stop: 09/22/18 19:31 Last Admin: 03/25/18 10:32 Dose: Not Given Albuterol Sulfate (Albuterol Inhaler) 2 puff IH Q4H PRN PRN Reason: Shortness Of Breath Stop: 09/22/18 18:29 Aspirin (Aspirin Ec) 81 mg PO DAILY JERILYN Stop: 09/23/18 09:01 Last Admin: 03/25/18 08:01 Dose: 81 mg Atorvastatin Calcium (Lipitor) 40 mg PO HS JERILYN Stop: 09/22/18 21:01 Last Admin: 03/24/18 22:01 Dose: 40 mg Carvedilol (Coreg) 6.25 mg PO BIDWM JERILYN PRN Reason: Protocol Stop: 09/22/18 21:01 Dextrose/Water (Dextrose 50% (Syg)) 25 ml IVP AD PRN PRN Reason: Hypoglycemia Stop: 09/22/18 18:35 Fluticasone Propionate (Flonase) 50 mcg NS DAILY PRN; Protocol PRN Reason: Allergy Symptoms Stop: 09/22/18 18:29 Gabapentin (Neurontin) 1,200 mg PO TID [facility] Stop: 09/22/18 21:01 Last Admin: 03/25/18 08:01 Dose: 1,200 mg Glipizide (Glucotrol Xl) 10 mg PO BID [facility] Stop: 09/22/18 21:01 Last Admin: 03/25/18 08:02 Dose: 10 mg Glucagon (Glucagen) 1 mg IM ONCE PRN PRN Reason: Hypoglycemia Stop: 09/22/18 18:35 Glucose (Gluctose) 15 gm PO ONCE PRN PRN Reason: Hypoglycemia Stop: 09/22/18 18:35 Glucose (Gluctose) 30 gm PO ONCE PRN PRN Reason: Hypoglycemia Stop: 09/22/18 18:35 Levofloxacin/Dextrose (Levaquin Premix 750mg/150 Ml) 750 mg in 150 mls @ 100 mls/hr IVPB DAILY JERILYN PRN Reason: Protocol Stop: 09/24/18 09:01 Last Admin: 03/25/18 08:03 Dose: 100 mls/hr Dextrose (Dextrose 5%) 1,000 mls @ 100 mls/hr IVC .Q10H PRN PRN Reason: HYPOGLYCEMIA Stop: 09/22/18 18:35 Vancomycin HCl 1,250 mg/ (Sodium Chloride) 250 mls @ 166.67 mls/hr IVPB Q12H JERILYN Stop: 09/24/18 06:01 Last Admin: 03/25/18 06:42 Dose: 166.67 mls/hr Insulin Human Lispro (Humalog) 0 units SQ HS JERILYN PRN Reason: Protocol Stop: 09/22/18 21:01 Last Admin: 03/25/18 06:45 Dose: Not Given Insulin Human Lispro (Humalog) 0 units SQ TIDAC JERILYN PRN Reason: Protocol Stop: 09/23/18 07:31 Last Admin: 03/25/18 11:50 Dose: Not Given Latanoprost (Xalatan) 1 drop BOTH EYES HS JERILYN PRN Reason: Protocol Stop: 09/23/18 21:01 Last Admin: 03/25/18 06:44 Dose: 1 drop Loratadine (Claritin) 10 mg PO DAILY JERILYN PRN Reason: Protocol Stop: 09/23/18 09:01 Last Admin: 03/25/18 08:02 Dose: 10 mg Magnesium Oxide (Mag-Ox) 400 mg PO BID JERILYN PRN Reason: Protocol Stop: 09/22/18 21:01 Last Admin: 03/25/18 08:02 Dose: 400 mg Metformin HCl (Glucophage) 1,000 mg PO BID JERILYN Stop: 09/22/18 21:01 Last Admin: 03/25/18 08:00 Dose: 1,000 mg Naloxone HCl (Narcan) 0.4 mg IVP Q2MIN PRN PRN Reason: SEE COMMENTS Stop: 09/22/18 18:13 Omeprazole (Prilosec) 20 mg PO BIDAC JERILYN PRN Reason: Protocol Stop: 09/22/18 21:01 Last Admin: 03/25/18 08:02 Dose: 20 mg Ondansetron HCl (Zofran Odt) 4 mg PO Q6H PRN PRN Reason: Nausea Pharmacy Profile Note (Patient Taking Own Medication) 0 each PO DAILY JERILYN Stop: 09/23/18 09:01 Last Admin: 03/25/18 08:04 Dose: Not Given Polysaccharide Iron Complex (Ferrex 150) 150 mg PO DAILY JERILYN Stop: 09/23/18 09:01 Last Admin: 03/25/18 08:02 Dose: 150 mg Rivaroxaban (Xarelto) 20 mg PO DAILY [facility] Stop: 09/23/18 09:01 Last Admin: 03/25/18 08:02 Dose: 20 mg Theophylline (Fabián-24) 400 mg PO BID [facility] Stop: 09/22/18 22:31 Last Admin: 03/25/18 08:01 Dose: 400 mg - Imaging and Cardiology Echo: report reviewed Holter: report reviewed - EKG Interpretation EKG results cardiology: personally reviewed (Admission EKG A-Fib rate 104. Repeat EKG this AM, sinus tach HR 119), other (12 hr tele AVG HR 105, PAF, now SR) Consult Discharge Plan - Plan Referrals: Juaquin Nelson MD [Primary Care Provider] - (sent web request on 03-25-18 @ [phone]) <Kika Faye - Last Filed: 03/26/18 00:51> Date of Encounter: 03/26/18 - Attending Attestation I have personally performed a face to face evaluation on this patient. I have reviewed and agree with the care plan. History and Exam by me shows: 68 YOF with PAF on BP meds and symtpomatic hypotension currently off lisinopril and on lower dose of coreg doing better with BP and improved symptoms. Follows with Dr. Christiano Pitts as an OP. Coreg slowly titrated up for rate control currently tolerating higher dose. Continue to titrate for better rate control or switch to cardizem if BP too low Assessment and Plan Discussion w patient/family: The assessment and plan as outlined above was discussed with the patient and/or family members who expressed understanding and agreement. All questions were answered. Thank you for involving us in the care of your patient. Please call with any questions. History of Present Illness History of present illness: Ms. Birmingham is a 68 year old female All Systems Review: The remainder of the systems were reviewed and are negative Physical Examination Vital Signs, Last 4 Hours Temp Pulse Resp BP Pulse Ox 03/25/18 23:30 98.1 F 76 21 108/73 96 03/25/18 21:45 93 Results 03/24/18 05:08 03/25/18 03:50 Lab Results 03/25/18 03:50 Sodium 142 Potassium 4.2 Chloride 113 H Carbon Dioxide 23 BUN 23 Creatinine 0.82 Glucose 83 Calcium 9.3 Magnesium 1.7
[2018-03-25] MEDS ORDERED: Levalbuterol 1 PUFF INHALER IH PRN (13:34)
--- NOTE | 2018-03-25 14:51 | Internal Med Progress Note ---
Date of Encounter: 03/25/18 Time of Encounter: 14:47 - Assessment and plan (1) Hypotension Current Visit: Yes Status: Acute Assessment and plan: resolved after iVF, and holding lisinopril Qualifiers: Hypotension type: unspecified hypotension type Qualified Code(s): I95.9 - Hypotension, unspecified (2) Atrial fibrillation with rapid ventricular response Current Visit: Yes Status: Chronic Assessment and plan: Heart rate is not controlled, coreg is increased to 12.5 mg twice a day, pending echocardiogram. Cardiology is on board (3) Hyperlipidemia associated with type 2 diabetes mellitus Current Visit: Yes Status: Chronic Assessment and plan: continue home meds (4) Multiple thyroid nodules Current Visit: No Status: Chronic Assessment and plan: follow up with PCP, normal TSH (5) Asthma Current Visit: No Status: Chronic Assessment and plan: stable , changed to xopenex, patient will need a script for xopenex due to atrail fib with RVR Qualifiers: Asthma severity: mild intermittent Asthma complication type: uncomplicated Qualified Code(s): J45.20 - Mild intermittent asthma, uncomplicated (6) Hypomagnesemia Current Visit: No Status: Acute Assessment and plan: chronic, has been replaced by IV 2 gm daily (7) Dehydration Current Visit: Yes Status: Acute Assessment and plan: resolved with IVF (8) Coronary artery disease Current Visit: Yes Status: Chronic Assessment and plan: CAD s/p CABG in 06/2016 contineu ASA, statin BB Qualifiers: Coronary Disease-Associated Artery/Lesion type: [place] artery [place] vs. transplanted heart: [place] heart Associated angina: without angina Qualified Code(s): I25.10 - Atherosclerotic heart disease of [place] coronary artery without angina pectoris (9) Morbid obesity Current Visit: Yes Status: Acute - Time Spent With Patient Total time spent is greater than 50% in coordination of care (as documented) at patient's floor/unit and/or counseling patient: - Subjective Interval history: Ms. Birmingham is a 68 year old female with a history of hypertension, diabetes, COPD , A. fib on Xarelto presents for evaluation of low blood pressure, dizziness and shortness of breath. Patient states she has been increasingly dyspneic and short of breath over the last few days. Patient states that she can only ambulate a few feet before feeling of lightheadedness and "blacking out". Patient denies any syncope. Patient states symptoms worse with exertion. Patient has noted some chest pain. Patient had a recent adjustment in her blood pressure medication with reduction of lisinopril. CT scan of the chest, pelvis and abodomen were noted and with no abnormalities that could justify low blood pressure. Negative CXR, UA and normal WBC, normal TSH and cortisol. Her BP improved with IVF she tolerated Coreg, increased coreg to 112.5 mg BID per cardiology hold lisinopril d/c ATB , infectious work up are negative pending TTE hypoglycemia, will reduce glipizide (XL) from 10 mg BID to daily, change to low scale SSI rosetta for HR better control hopefull tomorrow if HR is better control, hypoglycemia resolves - Constitutional Vitals: Temp Pulse Resp BP Pulse Ox 97.7 F 126 20 116/71 98 03/25/18 11:40 03/25/18 11:40 03/25/18 11:40 03/25/18 11:40 03/25/18 11:40 General appearance: Present: A&O X 3, obese Exam: CONSTITUTIONAL: patient appears as an age appropriate female in no acute distress. EYES Clear sclerae, bilateral pupils are equal, reactive to light. EMOI. RESPIRATORY: No accessory muscle use, bilateral clear to auscultation, no wheezing, no crackles/rales. CARDIOVASCULAR: Regular heart rate, normal S1 and S2, no murmurs GASTROINTESTINAL: bowel sounds present, soft, no tenderness. MUSCULOSKELETAL: Joints in normal range of motion, no clubbing, no edema, no cyanosis. Bilateral peripheral pulses 2+. NEUROLOGIC: CN II to XII are grossly intact, no focal neurological deficit. Internal Medicine: Result - Labs CBC & Chem 7: 03/24/18 05:08 03/25/18 03:50 Labs: BMP 03/25/18 03:50 Sodium 142 Potassium 4.2 Chloride 113 H Carbon Dioxide 23 BUN 23 Creatinine 0.82 Glucose 83 Calcium 9.3 - ABG Interpretation ABG results: PT/INR, D-dimer PT 13.8 Seconds (9.4-12.1) H 03/23/18 18:47 Consult Discharge Plan - Plan Referrals: Juaquin Nelson MD [Primary Care Provider] - (sent web request on 03-25-18 @ [phone])
--- NOTE | 2018-03-25 15:43 | Electrocardiograph Report ---
[address] [place], [place] [address] Test Date: 2018-03-23 Pat Name: Deyanira Birmingham Department: 102 Room: 2N03 Gender: F Field Checker: Ember : 1950 Requested By: Eddie Smiley Order Number: [id number] Reading MD: Gildardo Malik Measurements Intervals [place] Rate: 104 P: AL: 0 QRS: -46 QRSD: 80 T: 16 QT: 337 QTc: 398 Interpretive Statements ATRIAL FIBRILLATION WITH RAPID VENTRICULAR RESPONSE LOW QRS VOLTAGE IN PRECORDIAL LEADS ANTERIOR MYOCARDIAL INFARCTION, PROBABLY OLD INFERIOR MYOCARDIAL INFARCTION, PROBABLY OLD Electronically Signed On 03-25-2018 15:41:55 EDT by Gildardo Malik
[2018-03-25] MEDS: Levalbuterol Neb 1.25 MG/3 ML IH SCH (15:51)
[2018-03-25] MEDS ORDERED: Aminoglycoside Consult 1 EACH MC ONE (18:46)
--- NOTE | 2018-03-25 19:14 | Electrocardiograph Report ---
[place] [id number] Test Date: 2018-03-25 Pat Name: Deyanira Birmingham Department: 110 Room: 2N03 Gender: F Dam Tender Assistant: : 1950 Requested By: Kirill Cadet Order Number: [id number] Reading MD: Gildardo Malik Measurements Intervals [place] Rate: 119 P: -17 WV: 219 QRS: -21 QRSD: 69 T: 57 QT: 370 QTc: 440 Interpretive Statements SINUS TACHYCARDIA WITH FIRST DEGREE AV BLOCK LOW QRS VOLTAGE Poor R wave progression INFERIOR MYOCARDIAL INFARCTION, OF INDETERMINATE AGE Electronically Signed On 03-25-2018 19:12:48 EDT by Gildardo Malik
[2018-03-25] MEDS ORDERED: Insulin LISPRO 300 UNITS/3 ML VIAL SQ SCH (21:00)
[2018-03-26] MEDS: Levalbuterol Neb 1.25 MG/3 ML IH SCH ×2 (02:09→10:26)
[2018-03-26 04:54] LABS: BUN/Creatinine Ratio 27 (6-26); Blood Urea Nitrogen 20 mg/dL (8-23); Calcium 9.2 mg/dL (8.6-10.3); Carbon Dioxide 26 mEq/L (23-29); Chloride 109 mEq/L (98-107); Glucose 113 mg/dL (70-105); Magnesium 1.6 mg/dL (1.6-2.6); Osmolality,Calculated 291 (280-300); Potassium 4.4 mEq/L (3.5-5.1); Sodium 139 mEq/L (136-145); eGFR For African Americans > 60 (> 60); eGFR For Non-African Americans > 60 (> 60)
[2018-03-26] MEDS: Gabapentin 400 MG CAPSULE PO SCH (07:44)
[2018-03-26] MEDS: Insulin LISPRO 300 UNITS/3 ML VIAL SQ SCH ×2 (07:44→11:15)
[2018-03-26] MEDS: *HR* Metformin 500 MG TABLET PO SCH (07:44)
[2018-03-26] MEDS: Iron Polysaccharide Complex 150 MG CAPSULE PO SCH (07:45)
[2018-03-26] MEDS: *HR* GlipiZIDE XL (24 HR) 10 MG TABLET PO SCH (07:45)
[2018-03-26] MEDS: *HR* Rivaroxaban 10 MG TABLET PO SCH (07:45)
[2018-03-26] MEDS: Magnesium Oxide 400 MG TABLET PO SCH (07:45)
[2018-03-26] MEDS: Aspirin Enteric Coated 81 MG Tablet PO SCH (07:46)
[2018-03-26] MEDS: Loratadine 10 MG TABLET PO SCH (07:46)
[2018-03-26] MEDS: (Linagliptin [Tradjenta] 5 MG) PO SCH (07:46)
[2018-03-26 08:45] LABS: Estimated Average Glucose 148 mg/dl; Hemoglobin A1C 6.8 %
--- NOTE | 2018-03-26 09:52 | Event Note ---
Date of Encounter: 03/26/18 Time of Encounter: 09:51 - Cardiology Event Note 12 hr tele AVG HR 80, SR. Pt reports feeling much better, back to baseline. HR and BP tolerating increased BB--Coreg 12.5mg BID. Stopped Lisinopril. Cancelled limited TTE. No need to repeat at this time. No further cardiac work- up warranted inpt. Cardiology signing off. Reconsult PRN. Follow-up as outpt next month as already planned.
--- NOTE | 2018-03-26 11:01 | Discharge Summary ---
- NOTES TO OUTPATIENT PROVIDER Notes to Outpatient Provider: Admitted with dizziness, noted to have hypotension , a.fib with RVR, and hypoglycemia; Lisinopril held and Coreg increased; holding Glipizide XL and Tradjenta for now, to monitor BP and blood glucose and adjust meds as needed; Date of Encounter: 03/26/18 Time of Encounter: 10:59 - Discharge Diagnosis (1) Hypotension Priority: Primary Status: Acute Qualifiers: Hypotension type: unspecified hypotension type Qualified Code(s): I95.9 - Hypotension, unspecified (2) Coronary artery disease Priority: Secondary Status: Chronic Qualifiers: Coronary Disease-Associated Artery/Lesion type: bypass graft [place] vs. transplanted heart: three affiliated heart Associated angina: without angina Qualified Code(s): I25.810 - Atherosclerosis of coronary artery bypass graft(s) without angina pectoris (3) Anemia Priority: Secondary Status: Chronic Qualifiers: Anemia type: unspecified type Qualified Code(s): D64.9 - Anemia, unspecified (4) Diabetes Priority: Secondary Status: Chronic Qualifiers: Diabetes mellitus type: type 2 Diabetes mellitus longterm insulin use: without longterm use Diabetes mellitus complication status: with hypoglycemia Diabetes mellitus complication detail: without coma Qualified Code(s): E11.649 - Type 2 diabetes mellitus with hypoglycemia without coma (5) Atrial fibrillation with rapid ventricular response Priority: Primary Status: Chronic (6) Asthma Priority: Secondary Status: Chronic Qualifiers: Asthma severity: mild Asthma persistence: intermittent Asthma complication type: uncomplicated Qualified Code(s): J45.20 - Mild intermittent asthma, uncomplicated (7) Multiple thyroid nodules Priority: Secondary Status: Chronic Hospital course: Ms. [place] is a 68 year old female with the above medical problems, admitted with dizziness and near syncope. Noted to be hypotensive, responded to IV hydration; Lisinopril was held. Empiric antibiotics were started due to mildly elevated lactic acid at admission. However workup for infection was negative, and antibiotics were held. She was noted to be in atrial fibrillation with RVR. Cardiology was consulted, home dose of Coreg was increased to 12.5mg BID, which was tolerated well, with improved heart rate. Anticoagulation with Xarelto was continued. She is asymptomatic this morning except mild dry cough, better controlled BP and HR, and after d.w Cardiology, patient is deemed stable for discharge with outpatient followup. Discharge discussed with: patient, nurse - Time Spent with Patient Total time spent providing and/or coordinating discharge services: Greater than 30 minutes (45 min) - Discharge Medications Prescriptions: Carvedilol [Coreg] 12.5 mg PO BIDWM #60 tablet Magnesium Oxide [Mag-Ox] 600 mg PO BID #30 tablet Home Medications: Albuterol Neb [Proventil Neb] 3 ml IH TID 06/26/16 [History] Albuterol Sulfate [Ventolin Hfa] 2 puff IH Q4H PRN 06/26/16 [History] Gabapentin [Neurontin] 1,200 mg PO TID 06/26/16 [History] Latanoprost [Xalatan] 1 drop OP QPM 06/26/16 [History] Loratadine [Claritin] 10 mg PO DAILY 06/26/16 [History] Omeprazole [PriLOSEC] 20 mg PO BID 06/26/16 [History] Oxycodone HCl/Acetaminophen [Percocet 7.5-325 mg Tablet] 1 tab PO Q6H PRN [History] Theophylline Anhydrous [Theophylline] 400 mg PO BID 06/26/16 [History] Aspirin Enteric Coated [Aspirin EC] 81 mg PO DAILY #60 tablet. 07/06/16 [Rx] Atorvastatin [Lipitor] 40 mg PO HS #30 tablet 07/06/16 [Rx] Fluticasone Propionate Nasal [Flonase] 50 mcg NS DAILY PRN 05/15/17 [History] Iron Polysaccharide Complex [Pro Fe] 180 mg PO DAILY 05/15/17 [History] Ondansetron HCl [Zofran] 4 mg PO Q6H PRN 05/15/17 [History] Rivaroxaban [Xarelto] 20 mg PO DAILY 05/15/17 [History] Metformin HCl [Glucophage] 1,000 mg PO BID 30 Days tablet 07/31/17 [Rx] Carvedilol [Coreg] 12.5 mg PO BIDWM #60 tablet 03/26/18 [Rx] Magnesium Oxide [Mag-Ox] 600 mg PO BID #30 tablet 03/26/18 [Rx] Allergies/Adverse Reactions: 3 Allergy/AdvReac Type Severity Reaction Status Date / Time methylprednisolone AdvReac Diarrhea Verified 03/12/17 17:29 Penicillins AdvReac Swelling Verified 07/26/17 09:44 of Lip/Tongue/Throat rofecoxib AdvReac Nausea Verified 03/12/17 17:29 Date of admission: 03/23/18 18:45 Primary care physician: Juaquin Nelson MD Consults: 03/24/18 17:43 Consult to Cardiology [CONS] Routine Comment: Consulting Provider: Cardiology Leia Reason for Consult: atrial fib with RVR, hypotension Time Notified: 17:44 Call Completed: Yes 03/24/18 17:44 Consult to Physical Therapy [CONS] Routine Comment: Evaluate, develop and implement POC Reason for Consult: weakness Does patient have active BEDREST order?: No Is patient medically & hemodynamically stable?: Yes Patient assessed for mobility or mobilized this visit?: Yes Discharging clinician: Pippa Dumont Anticipated date of discharge: 03/26/18 - Constitutional Vitals: Temp Pulse Resp BP Pulse Ox 98.5 F 69 22 139/70 100 03/26/18 07:05 03/26/18 07:50 03/26/18 10:26 03/26/18 07:05 03/26/18 10:26 General appearance: Present: A&O X 3, obese, answers questions appropriately - Cardiovascular Cardiovascular exam: Present: RRR, +S1, +S2. Absent: diastolic murmur, gallop, rubs, systolic murmur - Patient Status Disposition: Home, Self-Care Condition: Good Functional capacity at discharge: independent ambulation Overall status at discharge: patient is progressing back to baseline - Discharge Instructions Instructions: Atrial Fibrillation (DC) Follow Up With: Kirill Cadet CNP [Advanced Practice Nurse] - (office will call patient at home with follow up appointment) Dilcia Ackerman CNP [Advanced Practice Nurse] - 04/01/18 4:00 pm Additional Instructions: F/up with Cardiology as scheduled; - Diet and Activity Activity: resume usual activities as tolerated Diet: diabetic diet, low fat, low cholesterol, low salt diet
[2018-03-26 11:03] VITALS: BP 141/82
[2018-03-26] MEDS ORDERED: Magnesium Oxide 400 MG TABLET PO SCH (21:00)
== END 2018-03-26 14:08 | disposition home or self-care (01) ==
LOC: 2NNU 13:37 → EMEROO 13:37 → SUATTDRO 18:45 → 2NNU 20:18
PROVIDERS: ADMIT Internal Medicine Nephrology; ATTEND Internal Medicine

== ENCOUNTER 2022-01-12 17:45 | Inpatient (IN) ==
[2022-01-12 19:08] LABS: Basophils % 0.6 %; Eosinophils # 0.2 K/mcL (0.0-0.6); Eosinophils % 2.5 %; Hematocrit 35.1 % (35.3-44.9); Hemoglobin 10.8 g/dL (11.5-15.4); Immature Granulocytes % 0.3 % (0-4); Lymphocytes # 1.3 K/mcL (0.6-4.6); Lymphocytes % 18.4 %; Mean Corpuscular HGB Conc 30.8 g/dL (31.6-35.5); Mean Corpuscular Hemoglobin 26.1 pg (28.0-33.3); Mean Corpuscular Volume 84.8 fL (83.0-100.0); Monocytes # 0.6 K/mcL (0.0-1.3); Monocytes % 7.9 %; Neutrophils # 5.1 K/mcL (1.6-8.9); Platelet Count 353 K/mcL (140-400); Red Blood Count 4.14 M/mcL (3.82-4.97); Red Cell Distribution Width 14.9 % (11.5-14.5); Segmented Neutrophils % 70.3 %; White Blood Count 7.2 K/mcL (4.3-11.1)
[2022-01-12 19:23] LABS: BUN/Creatinine Ratio 23 (6-26); Blood Urea Nitrogen 22 mg/dL (8-23); Calcium 9.9 mg/dL (8.6-10.3); Carbon Dioxide 27 mEq/L (23-29); Chloride 102 mEq/L (98-107); Glucose 114 mg/dL (70-105); Osmolality,Calculated 294 (280-300); Potassium 4.2 mEq/L (3.5-5.1); Sodium 140 mEq/L (136-145); Troponin I < 0.03 ng/mL (< 0.04); eGFR For African Americans > 60 (> 60); eGFR For Non-African Americans 58 (> 60)
[2022-01-12] MEDS ORDERED: Furosemide 40 MG/4 ML VIAL IVP ONE (19:33)
[2022-01-12] MEDS ORDERED: Ondansetron 4 MG/2 ML VIAL IVP PRN (20:30)
[2022-01-12] MEDS ORDERED: Naloxone 0.4 MG/ML INJ IVP PRN (20:30)
[2022-01-12] MEDS ORDERED: Acetaminophen 325 MG TABLET PO PRN (20:30)
[2022-01-12] MEDS ORDERED: Melatonin 3 MG TABLET PO PRN (20:30)
[2022-01-12] MEDS ORDERED: Dextrose 4 GM Chewable Tablets PO PRN ×2 (20:31)
[2022-01-12] MEDS ORDERED: D5% in Water 1,000 ML IVC PRN (20:31)
[2022-01-12] MEDS ORDERED: *HR* Dextrose 50 % in Water (Syg) 50 ML SYRINGE IVP PRN (20:31)
[2022-01-12] MEDS ORDERED: Perflutren Lipid Microsphere 1.3 ML in 0.9 % Sodium Chloride 8.7 ML IVP PRN (20:32)
[2022-01-12] MEDS ORDERED: *HR* OxyCODONE/APAP 10/325 TABLET PO PRN (22:34)
[2022-01-12] MEDS: Latanoprost 2.5 ML BOTTLE LEFT EYE SCH (23:59)
[2022-01-12] MEDS: Gabapentin 400 MG CAPSULE PO SCH (23:59)
[2022-01-12] MEDS: DilTIAZem CD (24hr) 120 MG CAP.ER.24H PO SCH (23:59)
[2022-01-12] MEDS: Iron Polysaccharide Complex 150 MG CAPSULE PO SCH (23:59)
[2022-01-12] MEDS: *HR* Rivaroxaban 10 MG TABLET PO SCH (23:59)
[2022-01-13] MEDS: Insulin LISPRO 300 UNITS/3 ML VIAL SUBQ SCH ×4 (00:10→17:09)
[2022-01-13 02:13] LABS: Basophils % 0.6 %; Eosinophils # 0.2 K/mcL (0.0-0.6); Eosinophils % 3.1 %; Hematocrit 30.7 % (35.3-44.9); Hemoglobin 9.3 g/dL (11.5-15.4); Immature Granulocytes % 0.3 % (0-4); Lymphocytes # 1.3 K/mcL (0.6-4.6); Lymphocytes % 20.4 %; Mean Corpuscular HGB Conc 30.3 g/dL (31.6-35.5); Mean Corpuscular Hemoglobin 25.5 pg (28.0-33.3); Mean Corpuscular Volume 84.1 fL (83.0-100.0); Mean Platelet Volume 10.1 fL (9.4-12.4); Monocytes # 0.5 K/mcL (0.0-1.3); Neutrophils # 4.3 K/mcL (1.6-8.9); Platelet Count 322 K/mcL (140-400); Red Blood Count 3.65 M/mcL (3.82-4.97); Red Cell Distribution Width 14.9 % (11.5-14.5); Segmented Neutrophils % 67.6 %; White Blood Count 6.4 K/mcL (4.3-11.1)
[2022-01-13 02:23] LABS: INR 2.4; Prothrombin Time 26.8 Seconds (9.4-12.1)
[2022-01-13 02:30] LABS: Alanine Aminotransferase 5 Units/L (7-52); Albumin 3.7 g/dL (3.5-5.7); Albumin/Globulin Ratio 1.4 (1.1-2.2); Alkaline Phosphatase 69 Units/L (34-104); Aspartate Amino Transferase 7 Units/L (13-39); BUN/Creatinine Ratio 23 (6-26); Bilirubin,Total 0.5 mg/dL (0.3-1.0); Blood Urea Nitrogen 20 mg/dL (8-23); Calcium 9.4 mg/dL (8.6-10.3); Carbon Dioxide 31 mEq/L (23-29); Chloride 102 mEq/L (98-107); Globulin 2.6 g/dL (2.4-3.5); Glucose 111 mg/dL (70-105); Magnesium 1.1 mg/dL (1.6-2.6); Osmolality,Calculated 295 (280-300); Phosphorous 3.6 mg/dL (2.7-4.5); Potassium 3.7 mEq/L (3.5-5.1); Sodium 141 mEq/L (136-145); Total Protein 6.3 g/dL (6.4-8.9); Troponin I < 0.03 ng/mL (< 0.04); eGFR For African Americans > 60 (> 60); eGFR For Non-African Americans > 60 (> 60)
[2022-01-13] MEDS: carvediloL 6.25 MG TABLET PO SCH ×2 (07:31→17:19)
[2022-01-13] MEDS: Gabapentin 400 MG CAPSULE PO SCH ×2 (07:32→21:00)
[2022-01-13] MEDS: Iron Polysaccharide Complex 150 MG CAPSULE PO SCH ×2 (07:32→21:00)
[2022-01-13] MEDS: Aspirin Enteric Coated 81 MG Tablet PO SCH (08:07)
[2022-01-13] MEDS: Spironolactone 25 MG TABLET PO SCH (08:07)
[2022-01-13] MEDS: DilTIAZem CD (24hr) 240 MG CAP.ER.24H PO SCH (08:07)
[2022-01-13] MEDS: Furosemide 40 MG/4 ML VIAL IVP SCH (09:39)
[2022-01-13] MEDS: Latanoprost 2.5 ML BOTTLE LEFT EYE SCH ×2 (17:22→21:03)
[2022-01-13] MEDS: Budesonide/Formoterol 160/4.5 1 PUFF INH IH SCH (20:08)
[2022-01-13] MEDS: DilTIAZem CD (24hr) 120 MG CAP.ER.24H PO SCH (21:00)
[2022-01-13] MEDS: *HR* Rivaroxaban 10 MG TABLET PO SCH (21:00)
[2022-01-14] MEDS: Insulin LISPRO 300 UNITS/3 ML VIAL SUBQ SCH ×5 (01:35→16:50)
[2022-01-14] MEDS: Budesonide/Formoterol 160/4.5 1 PUFF INH IH SCH ×2 (07:38→20:43)
[2022-01-14] MEDS: Iron Polysaccharide Complex 150 MG CAPSULE PO SCH ×2 (08:04→20:38)
[2022-01-14] MEDS: Gabapentin 400 MG CAPSULE PO SCH ×2 (08:04→20:38)
[2022-01-14] MEDS: Spironolactone 25 MG TABLET PO SCH (08:05)
[2022-01-14] MEDS: DilTIAZem CD (24hr) 240 MG CAP.ER.24H PO SCH (08:05)
[2022-01-14] MEDS: Aspirin Enteric Coated 81 MG Tablet PO SCH (08:05)
[2022-01-14] MEDS: carvediloL 6.25 MG TABLET PO SCH ×2 (08:05→16:49)
[2022-01-14] MEDS: Furosemide 40 MG/4 ML VIAL IVP SCH (08:10)
[2022-01-14 09:01] LABS: Basophils % 0.7 %; Eosinophils # 0.2 K/mcL (0.0-0.6); Eosinophils % 3.8 %; Hematocrit 34.5 % (35.3-44.9); Hemoglobin 10.3 g/dL (11.5-15.4); Immature Granulocytes % 0.3 % (0-4); Lymphocytes # 1.2 K/mcL (0.6-4.6); Lymphocytes % 19.9 %; Mean Corpuscular HGB Conc 29.9 g/dL (31.6-35.5); Mean Corpuscular Hemoglobin 25.3 pg (28.0-33.3); Mean Corpuscular Volume 84.8 fL (83.0-100.0); Monocytes # 0.6 K/mcL (0.0-1.3); Monocytes % 9.1 %; Neutrophils # 4.1 K/mcL (1.6-8.9); Platelet Count 347 K/mcL (140-400); Red Blood Count 4.07 M/mcL (3.82-4.97); Red Cell Distribution Width 14.9 % (11.5-14.5); Segmented Neutrophils % 66.2 %; White Blood Count 6.1 K/mcL (4.3-11.1)
[2022-01-14 09:21] LABS: BUN/Creatinine Ratio 21 (6-26); Blood Urea Nitrogen 18 mg/dL (8-23); Carbon Dioxide 32 mEq/L (23-29); Chloride 98 mEq/L (98-107); Glucose 161 mg/dL (70-105); Osmolality,Calculated 291 (280-300); Potassium 3.9 mEq/L (3.5-5.1); Sodium 138 mEq/L (136-145); eGFR For African Americans > 60 (> 60); eGFR For Non-African Americans > 60 (> 60)
[2022-01-14] MEDS: *HR* Rivaroxaban 10 MG TABLET PO SCH (20:37)
[2022-01-14] MEDS: DilTIAZem CD (24hr) 120 MG CAP.ER.24H PO SCH (20:38)
[2022-01-14] MEDS: Latanoprost 2.5 ML BOTTLE LEFT EYE SCH ×2 (20:40→21:59)
[2022-01-15] MEDS: Insulin LISPRO 300 UNITS/3 ML VIAL SUBQ SCH ×3 (00:39→11:21)
[2022-01-15] MEDS: Furosemide 40 MG/4 ML VIAL IVP SCH (07:44)
[2022-01-15] MEDS: carvediloL 6.25 MG TABLET PO SCH (07:45)
[2022-01-15] MEDS: Gabapentin 400 MG CAPSULE PO SCH (07:46)
[2022-01-15] MEDS: DilTIAZem CD (24hr) 240 MG CAP.ER.24H PO SCH (07:46)
[2022-01-15] MEDS: Aspirin Enteric Coated 81 MG Tablet PO SCH (07:46)
[2022-01-15] MEDS: Iron Polysaccharide Complex 150 MG CAPSULE PO SCH (07:47)
[2022-01-15] MEDS: Spironolactone 25 MG TABLET PO SCH (07:47)
[2022-01-15] MEDS: Budesonide/Formoterol 160/4.5 1 PUFF INH IH SCH (07:58)
[2022-01-15 10:22] VITALS: BP 111/73; PULSE 87; TEMP 98.4
[2022-01-15 12:36] VITALS: O2SAT 96
== END 2022-01-15 14:19 | disposition home or self-care (01) | DRG 291 ==
LOC: EMEROOARM 17:45 → 3BNU 17:45 → SUATTDRO 20:26 → 3BNU 21:26
PROVIDERS: ADMIT Family Medicine; ATTEND Registered Nurse